=== PATIENT | male | born 1960 | race Caucasian/White ===

== ENCOUNTER → 2020-10-17 15:39 | Outpatient (BNVA) | payer MEDICARE, MEDICAID, SELFPAY | PROVIDERS: PCP Internal Medicine Geriatric Medicine; Referring Provider Internal Medicine Geriatric Medicine; Visit Provider Nurse Practitioner | DX: Z76.89 Persons encountering health services in other specified circumstances (principal) ==

== ENCOUNTER 2020-11-03 09:43 | Outpatient (REF) | payer MEDICARE, MEDICAID, SELFPAY ==
--- NOTE | 2020-11-03 | XR_ITS ---
EXAMINATION: XR HIP, RIGHT XR HIP, LEFT CLINICAL INFORMATION: Right and left hip pain COMPARISON: None TECHNIQUE: Right hip, 2 views Left hip, 2 views FINDINGS: Right hip: The femoral head is well-positioned within the intact acetabulum. The hip joint space is normal. No arthritic deformity. No fracture or osteonecrosis. No suspicious lytic or osteoblastic lesion. Soft tissues are unremarkable. Left hip: The femoral head is well-positioned within the intact acetabulum. The hip joint space is normal. No arthritic deformity. No fracture or osteonecrosis. No suspicious lytic or osteoblastic lesion. Soft tissues are unremarkable. XR/XR hip LT min 2V IMPRESSION: Normal radiographic examination of each hip.
--- NOTE | 2020-11-03 09:52 | XR_ITS ---
EXAMINATION: XR HIP, RIGHT XR HIP, LEFT CLINICAL INFORMATION: Right and left hip pain COMPARISON: None TECHNIQUE: Right hip, 2 views Left hip, 2 views FINDINGS: Right hip: The femoral head is well-positioned within the intact acetabulum. The hip joint space is normal. No arthritic deformity. No fracture or osteonecrosis. No suspicious lytic or osteoblastic lesion. Soft tissues are unremarkable. Left hip: The femoral head is well-positioned within the intact acetabulum. The hip joint space is normal. No arthritic deformity. No fracture or osteonecrosis. No suspicious lytic or osteoblastic lesion. Soft tissues are unremarkable. XR/XR hip RT min 2V IMPRESSION: Normal radiographic examination of each hip.
== END 2020-11-03 09:44 | disposition home or self-care (01) ==
LOC: HO.XRAY 09:43
PROVIDERS: PCP Internal Medicine Geriatric Medicine; Visit Provider Emergency Medicine
DX: M25.551 Pain in right hip (principal); M25.552 Pain in left hip
CPT/HCPCS: 73502

== ENCOUNTER → 2021-01-16 09:49 | Outpatient (BNVA) | payer MEDICARE, MEDICAID, SELFPAY | PROVIDERS: PCP Internal Medicine Geriatric Medicine; Visit Provider Nurse Practitioner | CPT/HCPCS: Q3014 ==

== ENCOUNTER → 2021-07-17 10:23 | Outpatient (BNVA) | payer MEDICARE, MEDICAID, SELFPAY | PROVIDERS: PCP Internal Medicine Geriatric Medicine; Referring Provider Internal Medicine Geriatric Medicine; Visit Provider Nurse Practitioner | DX: K21.9 Gastro-esophageal reflux disease without esophagitis (principal); K59.00 Constipation, unspecified; Z80.0 Family history of malignant neoplasm of digestive organs; Z79.899 Other long term (current) drug therapy | CPT/HCPCS: 99212 ==

== ENCOUNTER → 2021-07-20 15:49 | Outpatient (REF) | payer MEDICARE, MEDICAID, SELFPAY | LOC: HO.SL 15:49 | PROVIDERS: PCP Internal Medicine Geriatric Medicine; Visit Provider Internal Medicine Geriatric Medicine | DX: G47.33 Obstructive sleep apnea (adult) (pediatric) (principal) | CPT/HCPCS: 95806 ==

== ENCOUNTER 2022-03-05 10:34 | Outpatient (REF) | payer MEDICARE, MEDICAID, SELFPAY ==
--- NOTE | ~2022-03-05 | XR_ITS ---
EXAMINATION: XR SHOULDER, LEFT CLINICAL INFORMATION: Left shoulder pain. COMPARISON: Prior radiographs March 2015. TECHNIQUE: AP external rotation, Grashey, scapular Y, and axillary views of the left shoulder. FINDINGS: There is mild osteoarthritis of the acromioclavicular joint. The glenohumeral joint is normal. The surrounding bone and soft tissues are unremarkable. XR/XR shoulder LT min 2V IMPRESSION: Mild osteoarthritis of the acromioclavicular joint.
[2022-03-05 13:05] LABS: ~HepC Num1 0.12 S/CO (0.00-0.79); ~Hepatitis C Antibody Nonreactive (Nonreactive)
[2022-03-05 13:16] LABS: HBsAGNum1 0.17 S/CO (0.00-0.99); HIV AB/AG Nonreactive (Nonreactive); HIV Num 1 0.06 S/CO (0.00-0.99); Hepatitis B Surface Antigen Negative (Negative)
[2022-03-05 13:24] LABS: HBS Num1 320.71 mIU/mL (0-7.99); HBc Num1 11.23 S/CO (0.00-0.79); ~Hepatitis B Surface Antibody REACTIVE (Nonreactive)
[2022-03-05 14:18] LABS: HBc Num2 11.23 S/CO; HBc Num3 11.19 S/CO; Hepatitis B Core Antibody Reactive (Nonreactive)
[2022-03-07 15:01] LABS: TS Negative Control Passed; TS Panel A 0; TS Panel B 0; TS Positive Control Passed; TSpotTB Negative (Negative)
== END 2022-03-05 10:35 | disposition home or self-care (01) ==
LOC: HO.XRAY 10:34
PROVIDERS: PCP Internal Medicine Geriatric Medicine; Visit Provider Internal Medicine Geriatric Medicine
DX: Z00.00 Encounter for general adult medical examination without abnormal findings (principal); Z11.4 Encounter for screening for human immunodeficiency virus [HIV]; Z11.1 Encounter for screening for respiratory tuberculosis; M25.512 Pain in left shoulder
CPT/HCPCS: 36415; 73030; 86481; 86704; 86706; 86803; 87340; 87389

== ENCOUNTER → 2022-10-24 15:03 | Outpatient (BNVA) | payer MEDICARE, MEDICAID, SELFPAY | PROVIDERS: PCP Internal Medicine Geriatric Medicine; Visit Provider Nurse Practitioner | DX: Z01.818 Encounter for other preprocedural examination (principal); K59.00 Constipation, unspecified; K21.9 Gastro-esophageal reflux disease without esophagitis; Z80.0 Family history of malignant neoplasm of digestive organs | CPT/HCPCS: 99212 ==

== ENCOUNTER 2022-11-19 21:44 | Emergency (ER) | payer MEDICARE, MEDICAID, SELFPAY ==
[2022-11-19 21:49] VITALS: PULSE 66; RESP 18; TEMP 36.8; O2SAT 95
--- NOTE | 2022-11-19 22:33 | ED.LOWEXIN ---
HPI - Extremity Injury (Lower) General Chief Complaint: Extremity Injury, Lower Stated Complaint: L knee swelling Time Seen by Provider: 11/19/22 22:29 Source: patient Mode of arrival: ambulatory Limitations: no limitations History of Present Illness HPI Narrative: Patient complaining of pain in left knee for last 2 weeks getting worse swelling no known injuries patient was moving some heavy stuff few days no other joint pain no fever or chills Related Data Home Medications Medication Instructions Recorded Confirmed cholecalciferol (vitamin D3) 25 25 mcg PO DAILY 07/17/21 mcg (1,000 unit) tablet (Vitamin D3) amlodipine 2.5 mg tablet 2.5 mg PO DAILY 10/24/22 atorvastatin 10 mg tablet 10 mg PO DAILY 10/24/22 hydrocortisone 1 % topical cream topical 10/24/22 with perineal applicator tadalafil 20 mg tablet (Cialis) 20 mg PO DAILY 10/24/22 Previous Rx's Medication Instructions Recorded pantoprazole 40 mg tablet,delayed 40 mg PO DAILY #90 tabs 10/24/22 release peg 3350-electrolytes 236 240 ml PO Q10M 1 day #4,000 mL 10/24/22 gram-22.74 gram-6.74 gram-5.86 gram solution (Golytely) polyethylene glycol 3350 17 17 g PO DAILY 30 days #510 grams 10/24/22 gram/dose oral powder (Miralax) ibuprofen 600 mg tablet 600 mg PO Q6H PRN fever or pain 11/19/22 #30 tabs Allergies Allergy/AdvReac Type Severity Reaction Status Date / Time Influenza Virus Vaccines Allergy Unknown RASH Verified 07/17/21 10:31 Review of Systems Review of Systems: Yes all other systems are reviewed and are negative [facility] Past Medical History Surgical History History of esophagogastroduodenoscopy (EGD) History of testicular surgery Hx of colonoscopy Family History Family History Father Colon cancer Mother Alzheimer disease Brother Colon cancer, Onset Age: 60 Social History Social History Alcohol intake: never Smoked in Last 30 Days: No Use of substances other than those prescribed or required for medical reasons: No Advance Directives: No Advance Directives Information Provided: No Physical Exam Vital Signs: Vital Signs: Last Vital Signs Temp 98.2 F 11/19/22 21:49 Pulse 66 11/19/22 21:49 Resp 18 11/19/22 21:49 Pulse Ox 95 11/19/22 21:49 O2 Del Method 11/19/22 21:49 BMI result Body Mass Index 30.0 Appearance: Alert. Oriented X3. No acute distress. Neck: Normal inspection. Neck supple. CVS: Normal heart rate and rhythm. Pulses normal. Respiratory: No respiratory distress. Equal air entry bilateral, Abdomen: Soft and nontender. Bowel sounds are present, no mass palpable, no CVA tenderness Skin: Skin warm and dry. Normal skin color. Normal skin turgor. Extremities: No lower extremity edema. No calf tenderness left knee with moderate effusion Extrem: Knee images: 1. Moderate effusion good range of movement Medications Administered Discontinued Medications Generic Name Dose Route Start Last Admin Trade Name Freq PRN Reason Stop Dose Admin Lidocaine HCl 10 ml 11/19/22 22:40 11/19/22 22:51 Lidocaine Hcl 2 % Mpf 5 Ml Vial INFILTRATI 11/19/22 22:41 10 ml ONCE ONE Administration Methylprednisolone Acetate 80 mg 11/19/22 22:40 11/19/22 22:57 Methylprednisolone Acetate 80 Mg Vial INTRAARTIC 11/19/22 22:41 80 mg ONCE ONE Administration Medical Decision Making Medical Decision Making [facility] Narrative: Patient with left knee arthritis 50 cc joint fluid was aspirated ultrasound-guided methyl prednisolone with lidocaine were injected patient feeling much better now without any significant pain able to ambulate x-ray negative for acute will discharge patient Lab Data [facility] Lab Attestation statement: I reviewed the patient's lab results. Labs: Lab Results 11/19/22 Range/Units 23:30 Synovial Source l knee Synovial WBC 0.970 X10*3/uL Synovial RBC < 0.002 X10*6/uL Procedures Joint Aspiration/Injection Joint Asp./Inject. 1: Time Out Performed: Yes Side of body: left Joint Aspirated: knee Ultrasound Guidance: Yes Skin Prep: Povidone-Iodine1% Local Anesthetic: lidocaine 2% Amount of anesthesia used (mL): 5 Needle Size Used: 20G Fluid Obtained: clear Total fluid obtained (mL): 50 Medication Injected, if any: Methylprednisolone Amount of medication injected (mL): 5 Patient Tolerated Procedure: well Complications: none Additional Comments: 80 mg of methylprednisolone was injected with 4 mL of lidocaine 2% Discharge Plan Discharge Clinical Impression: Arthritis of left knee Patient Disposition: Home, Self-Care Instructions: Osteoarthritis (ED), Joint Aspiration (DC) Additional Instructions: Rest to your left knee Avoid going upstairs or downstairs Tyrone wrap for support Ibuprofen for pain Follow with PCP if not better Prescriptions: New ibuprofen 600 mg tablet 600 mg PO Q6H PRN (Reason: fever or pain) Qty: 30 0RF No Action cholecalciferol (vitamin D3) [Vitamin D3] 25 mcg (1,000 unit) tablet 25 mcg PO DAILY tadalafil [Cialis] 20 mg tablet 20 mg PO DAILY amlodipine 2.5 mg tablet 2.5 mg PO DAILY atorvastatin 10 mg tablet 10 mg PO DAILY hydrocortisone 1 % cream with perineal applicator topical peg 3350-electrolytes [Golytely] 236-22.74-6.74 -5.86 gram recon soln 240 ml PO Q10M 1 Days Qty: 4000 0RF Rx Instructions: until fecal effluent is clear; do not exceed a total volume of 2,000 mL polyethylene glycol 3350 [Miralax] 17 gram/dose powder 17 g PO DAILY 30 Days Qty: 510 6RF pantoprazole 40 mg tablet,delayed release (DR/EC) 40 mg PO DAILY Qty: 90 1RF Stand Alone Forms: Work/School Release Interventions: ED Discharge Assessment Last Done: 11/19/22 23:38 Discharge Date/Time: 11/19/22 23:38
--- NOTE | 2022-11-19 23:08 | PC.NURSE ---
PT a&ox4, reports left knee pain pain and swelling for 2 weeks now. Reports 5/10 pain. PT ambulatory, describes pain as a pulling pain. Provider at bedside.
[2022-11-19 23:45] LABS: MN% 90.6 %; PMN% 9.4 %
[2022-11-19 23:49] LABS: BF Shift QC OK YES; RBC Synovial Fluid < 0.002 X10*6/uL
[2022-11-20 00:12] LABS: Lymphocytes Synovial Fluid 11 %; Monocytes Synovial Fluid 76 %; Neutrophils Synovial Fluid 7 %; Other Cells Synovial Fluid 6
== END 2022-11-19 23:38 | disposition home or self-care (01) ==
PROVIDERS: Emergency Provider Internal Medicine; PCP Internal Medicine Geriatric Medicine
DX: M17.12 Unilateral primary osteoarthritis, left knee (principal); M25.462 Effusion, left knee; M25.562 Pain in left knee
CPT/HCPCS: 20611; 73560; 87070; 87073; 87205; 89051; 89060; 99284; J1040

== ENCOUNTER 2022-12-04 16:09 | Emergency (ER) | payer MEDICARE, MEDICAID, SELFPAY ==
--- NOTE | ~2022-12-04 | XR_ITS ---
EXAMINATION: XR KNEE, LEFT CLINICAL INFORMATION: Knee pain COMPARISON: Left knee 11/19/2022 TECHNIQUE: Four views of the left knee. FINDINGS: Compared to the prior study, the left knee joint effusion is decreased in size with only a tiny effusion remaining. The exam is otherwise unchanged with some mild degenerative changes and some very mild tricompartmental narrowing no acute finding. XR/XR knee LT 4V IMPRESSION: Decrease in size of left knee joint effusion. No acute finding.
[2022-12-04 16:17] VITALS: BP 133/86; PULSE 70; RESP 18; TEMP 36.6; O2SAT 98
--- NOTE | 2022-12-04 16:18 | ED_ITS ---
HPI - Extremity Injury (Lower) General Chief Complaint: Extremity Injury, Lower <ALISSA Valdivia - Last Filed: 12/04/22 16:23> Stated Complaint: L knee pain <ALISSA Valdivia - Last Filed: 12/04/22 16:23> Time Seen by Provider: 12/04/22 16:40 <ALISSA Valdivia - Last Filed: 12/04/22 16:23> History of Present Illness HPI Narrative: Patient is a 62-year-old male presents to the emergency department for evaluation of left knee pain. States he was seen in the emergency department a couple of weeks ago had a cortisone injection and drainage of the knee which improved his pain. Symptoms returned about 1 week ago, increasing pain to the left medial knee which is made worse with weight-bearing/ambulation. Denies any numbness or tingling to the extremity. Denies any injury or fall. Denies fevers or chills. Denies redness, lesions, rash. <Simi Jones CNP - Last Filed: 12/04/22 17:38> Related Data Home Medications: Home Medications Medication Instructions Recorded Confirmed cholecalciferol (vitamin D3) 25 25 mcg PO DAILY 07/17/21 mcg (1,000 unit) tablet (Vitamin D3) amlodipine 2.5 mg tablet 2.5 mg PO DAILY 10/24/22 atorvastatin 10 mg tablet 10 mg PO DAILY 10/24/22 hydrocortisone 1 % topical cream topical 10/24/22 with perineal applicator tadalafil 20 mg tablet (Cialis) 20 mg PO DAILY 10/24/22 Previous Rx's Medication Instructions Recorded pantoprazole 40 mg tablet,delayed 40 mg PO DAILY #90 tabs 10/24/22 release peg 3350-electrolytes 236 240 ml PO Q10M 1 day #4,000 mL 10/24/22 gram-22.74 gram-6.74 gram-5.86 gram solution (Golytely) polyethylene glycol 3350 17 17 g PO DAILY 30 days #510 grams 10/24/22 gram/dose oral powder (Miralax) ibuprofen 600 mg tablet 600 mg PO Q6H PRN fever or pain 11/19/22 #30 tabs <ALISSA Valdivia - Last Filed: 12/04/22 16:23> Allergies/Adverse Reactions: Allergies Allergy/AdvReac Type Severity Reaction Status Date / Time Influenza Virus Vaccines Allergy Unknown RASH Verified 07/17/21 10:31 <ALISSA Valdivia - Last Filed: 12/04/22 16:23> Review of Systems Review of Systems: Musculoskeletal: Positive knee pain is noted in HPI <Simi Jones CNP - Last Filed: 12/04/22 17:38> Yes all other systems are reviewed and are negative <Simi Jones CNP - Last Filed: 12/04/22 17:38> [facility] Past Medical History Attestation statement: The following information was validated with the patient. <Simi Jones CNP - Last Filed: 12/04/22 17:38> Source: old records reviewed <Simi Jones CNP - Last Filed: 12/04/22 17:38> Surgical History: Surgical History History of esophagogastroduodenoscopy (EGD) History of testicular surgery Hx of colonoscopy <ALISSA Valdivia - Last Filed: 12/04/22 16:23> Family History Family History: Family History Father Colon cancer Mother Alzheimer disease Brother Colon cancer, Onset Age: 60 <ALISSA Valdivia - Last Filed: 12/04/22 16:23> Social History Social History: Social History Alcohol intake: never Advance Directives: No Advance Directives Information Provided: Yes <ALISSA Valdivia - Last Filed: 12/04/22 16:23> Physical Exam Vital Signs: Vital Signs: Last Vital Signs Temp 97.8 F 12/04/22 16:17 Pulse 70 12/04/22 16:17 Resp 18 12/04/22 16:17 BP 133/86 12/04/22 16:17 Pulse Ox 98 12/04/22 16:17 O2 Del Method 12/04/22 16:17 BMI result Body Mass Index 30.0 <ALISSA Valdivia - Last Filed: 12/04/22 16:23> Vital Signs: Last Vital Signs Temp 97.8 F 12/04/22 16:17 Pulse 70 12/04/22 16:17 Resp 18 12/04/22 16:17 BP 133/86 12/04/22 16:17 Pulse Ox 98 12/04/22 16:17 O2 Del Method 12/04/22 16:17 BMI result Body Mass Index 30.0 <Simi Jones CNP - Last Filed: 12/04/22 17:38> Appearance: Alert.?Oriented to person, place and time. No acute distress.?Normal affect. Eyes: Pupils equal, round and reactive to light.? ENT: Pharynx normal.?? Neck: Normal inspection.? Neck supple.?? CVS: Heart sounds normal. Normal heart rate and rhythm.? Pulses normal.?? Respiratory: No respiratory distress.? Lung sounds clear to auscultation bilaterally?? Abdomen: Soft and non-tender. Skin: Skin warm and dry.? Normal skin color.? Extremities: No lower extremity edema.? Left knee with full AROM, no obvious effusion, no laxity, no lesions, no redness, no warmth. 2+ DP/PT pulse bilaterally. Neuro: Moves all extremities spontaneously. Sensation intact bilaterally. Ambulates with normal steady gait. <Simi Jones CNP - Last Filed: 12/04/22 17:38> Course Course Course Narrative: RME - 62 yo male recently here for left knee effusion s/p arthrocentesis by Dr. Mcmillan on 11/19 who presents back to the ER with worsening left knee pain and medial swelling for 2 weeks. No fevers, or redness. It is warm per his report and throbbing pain. Limping into triage. XR ordered to reassess for recurrent effusion. <ALISSA Valdivia - Last Filed: 12/04/22 16:23> Medical Decision Making Medical Decision Making MDM Narrative: Patient is a 62-year-old male presents to the emergency department for evaluation of atraumatic left knee pain. Was evaluated in the emergency department 11/19, underwent arthrocentesis secondary to effusion, advised use of NSAIDs for pain/symptoms. XR imaging today without evidence of fracture dislocation, improvement in size of a fusion. Upon physical examination no significant effusion is appreciated, no obvious deformity or laxity. Pain most consistent with arthritis at this time. Not consistent with septic arthritis. Discussed use of high-dose NSAID, outpatient follow-up with primary care provider/orthopedic for further evaluation/treatment. Reviewed worrisome signs and symptoms of warrant re-evaluation in the emergency department. Patient ambulatory with steady gait, stable for discharge. <Simi Jones CNP - Last Filed: 12/04/22 17:38> Differential Diagnosis Differential Diagnoses: The differential diagnosis associated with the presentation includes (As noted above) <Simi Jones CNP - Last Filed: 12/04/22 17:38> Independent Interpretation I performed an independent interpretation of an: Plain X-Ray (I personally interpreted x-ray imaging of the left knee and agree with radiologist impression, no evidence of acute fracture dislocation.) <Simi Jones CNP - Last Filed: 12/04/22 17:38> Radiology Impression Discussion of test interpretation with radiology: I have reviewed the radiologist's reading. <Simi Jones CNP - Last Filed: 12/04/22 17:38> Radiologist Impression: XR/XR knee LT 4V IMPRESSION: Decrease in size of left knee joint effusion. No acute finding. ? <Simi Jones CNP - Last Filed: 12/04/22 17:38> Prescription Management I considered prescription management with: Pain Medication <Simi Jones CNP - Last Filed: 12/04/22 17:38> Discharge Plan Discharge Clinical Impression: Arthritis of knee, left <ALISSA Valdivia - Last Filed: 12/04/22 16:23> Patient Disposition: Home, Self-Care <ALISSA Valdivia - Last Filed: 12/04/22 16:23> Instructions: Osteoarthritis (ED) <ALISSA Valdivia - Last Filed: 12/04/22 16:23> Additional Instructions: As discussed, the x-ray does not show any fracture dislocation. There is no significant effusion or fluid buildup that would require drainage has occurred in the past. Please be sure to rest, avoid excessive ambulation, stair climbing. Use Tyrone bandage to the left knee. Continue use of ibuprofen for pain. Contact your primary care provider to arrange for further follow-up. <ALISSA Valdivia - Last Filed: 12/04/22 16:23> Prescriptions: No Action ibuprofen 600 mg tablet 600 mg PO Q6H PRN (Reason: fever or pain) Qty: 30 0RF cholecalciferol (vitamin D3) [Vitamin D3] 25 mcg (1,000 unit) tablet 25 mcg PO DAILY tadalafil [Cialis] 20 mg tablet 20 mg PO DAILY amlodipine 2.5 mg tablet 2.5 mg PO DAILY atorvastatin 10 mg tablet 10 mg PO DAILY hydrocortisone 1 % cream with perineal applicator topical peg 3350-electrolytes [Golytely] 236-22.74-6.74 -5.86 gram recon soln 240 ml PO Q10M 1 Days Qty: 4000 0RF Rx Instructions: until fecal effluent is clear; do not exceed a total volume of 2,000 mL polyethylene glycol 3350 [Miralax] 17 gram/dose powder 17 g PO DAILY 30 Days Qty: 510 6RF pantoprazole 40 mg tablet,delayed release (DR/EC) 40 mg PO DAILY Qty: 90 1RF <ALISSA Valdivia - Last Filed: 12/04/22 16:23> Referrals: Name,MD Elvin [Primary Care Provider] - <ALISSA Valdivia - Last Filed: 12/04/22 16:23>
== END 2022-12-04 17:40 | disposition home or self-care (01) ==
PROVIDERS: Emergency Provider Emergency Medicine Emergency Medical Services; PCP Internal Medicine Geriatric Medicine
DX: M17.12 Unilateral primary osteoarthritis, left knee (principal); M25.562 Pain in left knee; Z79.02 Long term (current) use of antithrombotics/antiplatelets; Z79.899 Other long term (current) drug therapy
CPT/HCPCS: 73564; 99282; 99283

== ENCOUNTER 2023-02-04 12:02 | Outpatient (REF) | payer MEDICARE, MEDICAID, SELFPAY ==
--- NOTE | ~2023-02-04 | XR_ITS ---
EXAMINATION: XR KNEE AP STANDING CLINICAL INFORMATION: Pain in right knee. COMPARISON: Left knee 11/19/2022 TECHNIQUE: AP bilateral standing view of the knees was obtained. Left knee sunrise view. FINDINGS: AP bilateral knee standing: There is mild reduction in medial compartment joint space both knees without bony erosive changes. There is no visible acute fracture, dislocation or lytic process seen. The lateral compartment joint space is normal. The soft tissues are normal. Left knee: The patellofemoral joint space is maintained normal. No bony erosive changes. No loose bodies. No soft tissue swelling. XR/XR knee LT 1V IMPRESSION: 1. Mild early degenerative changes medial compartment both knees. No visible acute fracture, dislocation or subluxation seen. 2. Unremarkable left knee exam.
--- NOTE | ~2023-02-04 | XR_ITS ---
EXAMINATION: XR KNEE AP STANDING CLINICAL INFORMATION: Pain in right knee. COMPARISON: Left knee 11/19/2022 TECHNIQUE: AP bilateral standing view of the knees was obtained. Left knee sunrise view. FINDINGS: AP bilateral knee standing: There is mild reduction in medial compartment joint space both knees without bony erosive changes. There is no visible acute fracture, dislocation or lytic process seen. The lateral compartment joint space is normal. The soft tissues are normal. Left knee: The patellofemoral joint space is maintained normal. No bony erosive changes. No loose bodies. No soft tissue swelling. XR/XR knee standing BI IMPRESSION: 1. Mild early degenerative changes medial compartment both knees. No visible acute fracture, dislocation or subluxation seen. 2. Unremarkable left knee exam.
== END 2023-02-04 12:03 | disposition home or self-care (01) ==
LOC: HO.HOSX 12:02
PROVIDERS: Visit Provider Physician Assistant
DX: M17.12 Unilateral primary osteoarthritis, left knee (principal)
CPT/HCPCS: 20610; 73560; 73565; 99202; J1040

== ENCOUNTER 2023-03-22 14:00 | Outpatient (RCR) | payer MEDICARE, MEDICAID, SELFPAY ==
[2023-03-04 11:05] VITALS: BP 156/73; PULSE 61
--- NOTE | 2023-03-04 11:54 | MHC.PT.EP ---
[facility] [place] Office [place] Office [place] Office [address] [phone] F: [phone] F: [phone] F: [phone] F: [phone] Physical Therapy Plan of Care Date of Evaluation: Date of Surgery: NA Diagnosis: Unilateral primary OA, L knee Assessment: Abrahan is a 62 year old male who is referred to PT for unilateral primary OA, L knee . He reports of having pain in L knee for 3-4 months. He denies having any trauma however reports of having a day where he was weight bearing significantly on L LE while loading his truck. He reported of having swelling a few days after this. He went to the ED where it was drained and cortisone shot given. On PT examination he presented with 7/10 pain in knee with standing, walking, stairs, mild to moderate swelling, decreased knee ROM, decreased L LE strength, altered posture and gait. He lives with his family and is independent with all ADLS but modifies by taking frequent rest breaks. He works as a [employer]. He would benefit from skilled PT to address the aforementioned impairments and improve tolerance to functional activities. Frequency and Duration: The patient will be seen 2/week for 5 weeks Short Term Goals: 1. Pt will have 50% decrease in pain which will enable him to tolerate sitting without pain in 2 weeks. 2. Pt will be able move knee through full plane of motion without pain which will enable him to negotiate stairs with a pain no more than 2/10 in 3 weeks. Making Department Preparer Goals: 1. Pt will demonstrate an increase in muscle strength by 1 grade which will enable him to tolerate sit to stand and walk without pain in 5 weeks. 2. Pt will be independent with HEP for symptom management and maintenance following d/c in 5 weeks. Treatment Plan: Modalities to reduce pain, spasms and effusion. Manual therapy to restore motion and function. Therapeutic exercise to improve strength and flexibility. Neuromuscular re-education for posture and balance. Therapeutic activities to return to functional activities of daily living. Electronically signed by: Dory Hutson PT DPT Please sign and return to therapist. Thank you for your referral.
--- NOTE | 2023-04-25 08:28 | MHC.PT.DC ---
[facility] [place] Office [place] Office [place] Office [address] [phone] F: [phone] F: [phone] F: [phone] F: [phone] Physical Therapy Discharge Report Diagnosis: Unilateral primary OA, L knee Date of Surgery: NA Date of Evaluation: 03/04/23 Date of Discharge: 04/25/23 Treatments to Date: 4 Cancellations to Date: 1 No Shows to Date: 2 Discharge Status: Visit Non-compliance Discharge Summary: Abrahan attended only 4 PT. He has had 2 no shows and 1 cancels. He has made no appointments in over a month. He is therefore being d/c from PT. Electronically signed by: Dory Hutson PT DPT Please sign and return to therapist. Thank you for your referral.
== END 2023-04-25 08:28 | disposition home or self-care (01) ==
LOC: HO.PT 14:00
PROVIDERS: PCP Internal Medicine Geriatric Medicine; Visit Provider Physician Assistant
DX: M17.12 Unilateral primary osteoarthritis, left knee (principal)
CPT/HCPCS: 97110; 97112; 97140; 97161

== ENCOUNTER 2024-01-09 11:14 | Outpatient (REF) | payer MEDICARE, MEDICAID, SELFPAY ==
[2024-01-11 20:48] LABS: TS Negative Control Passed; TS Panel A 0; TS Panel B 0; TS Positive Control Passed; TSpotTB Negative (Negative)
== END 2024-01-09 11:15 | disposition home or self-care (01) ==
LOC: HO.HHCL 11:14
PROVIDERS: Visit Provider Internal Medicine Geriatric Medicine
DX: Z00.00 Encounter for general adult medical examination without abnormal findings (principal)
CPT/HCPCS: 36415; 86481

== ENCOUNTER 2024-04-30 08:33 | Day surgery (SDC) | payer MEDICARE, MEDICAID, SELFPAY ==
--- NOTE | 2024-04-29 10:41 | HO.ANESPROP2 ---
Documented by User: Anjelica Alves NP 04/29/24 10:42 HPI - Anesthesia Eval Consult details Narrative: 64yo M for Colonoscopy PMFSH Active Problems Active Problems: All Active Problems Osteoarthritis of left knee (Acute) Pre-op examination (Acute) Family history of colon cancer (Acute) Constipation (Acute) Bile acid esophageal reflux (Acute) GERD (gastroesophageal reflux disease) (Acute) Past Medical History Medical History HTN (hypertension) Sleep apnea Hx of gastroesophageal reflux (GERD) History of high cholesterol Family History Family History Father Colon cancer Mother Alzheimer disease Brother Colon cancer, Onset Age: 60 Surgical History Surgical History Hx of excision of mass History of testicular surgery Hx of colonoscopy History of esophagogastroduodenoscopy (EGD) Social History Social History Alcohol intake: never Patient Tobacco Use Status: Never used Tobacco Advance Directives: No Advance Directives Information Provided: Yes Meds Allergies Allergy/AdvReac Type Severity Reaction Status Date / Time latex Allergy Mild Rash Verified 04/30/24 08:48 Influenza Virus Vaccines Allergy Unknown RASH Verified 02/04/23 12:29 Home Medications ?Medication ?Instructions ?Recorded ?Confirmed ?Last Taken ?Type cholecalciferol (vitamin D3) 25 25 mcg PO DAILY 07/17/21 04/30/24 Unknown History mcg (1,000 unit) tablet (Vitamin D3) amlodipine 2.5 mg tablet 2.5 mg PO DAILY 10/24/22 04/30/24 Unknown History atorvastatin 10 mg tablet 10 mg PO DAILY 10/24/22 04/30/24 Unknown History tadalafil 20 mg tablet (Cialis) 20 mg PO DAILY 10/24/22 04/30/24 Unknown History Exam Height,Weight and Vital Signs: Height 5 ft 4 in Weight 79.379 kg Assessment and Plan Assessment Anesthesia Assessment: Chart Reviewed Documented by User: Meghan Monterroso MD 04/30/24 09:30 PMFSH Active Problems Active Problems: All Active Problems Osteoarthritis of left knee (Acute) Pre-op examination (Acute) Family history of colon cancer (Acute) Constipation (Acute) Bile acid esophageal reflux (Acute) GERD (gastroesophageal reflux disease) (Acute) MICHEAL. Uses CPAP Past Medical History Medical History HTN (hypertension) Sleep apnea Hx of gastroesophageal reflux (GERD) History of high cholesterol Family History Family History Father Colon cancer Mother Alzheimer disease Brother Colon cancer, Onset Age: 60 Family history of problems with anesthesia: No Surgical History Surgical History Hx of excision of mass History of testicular surgery Hx of colonoscopy History of esophagogastroduodenoscopy (EGD) History of Problems with Anesthesia: No Social History Social History Alcohol intake: never Patient Tobacco Use Status: Never used Tobacco Advance Directives: No Advance Directives Information Provided: Yes Meds Allergies Allergy/AdvReac Type Severity Reaction Status Date / Time latex Allergy Mild Rash Verified 04/30/24 08:48 Influenza Virus Vaccines Allergy Unknown RASH Verified 02/04/23 12:29 Home Medications ?Medication ?Instructions ?Recorded ?Confirmed ?Last Taken ?Type cholecalciferol (vitamin D3) 25 25 mcg PO DAILY 07/17/21 04/30/24 Unknown History mcg (1,000 unit) tablet (Vitamin D3) amlodipine 2.5 mg tablet 2.5 mg PO DAILY 10/24/22 04/30/24 Unknown History atorvastatin 10 mg tablet 10 mg PO DAILY 10/24/22 04/30/24 Unknown History tadalafil 20 mg tablet (Cialis) 20 mg PO DAILY 10/24/22 04/30/24 Unknown History Exam Height,Weight and Vital Signs: Height 5 ft 4 in Weight 79.379 kg Vital Signs Temp Pulse Resp BP Pulse Ox O2 Del Method 04/30/24 08:38 98 F 56 20 132/66 96 Room Air Airway Mallampati Class: II TM Dist: >3cm Neck ROM: Full Partial: Upper and Lower Loose/Missing/Broken Teeth: Yes (Partials top and bottom. Denies broken) Heart: RRR Lungs: CTAB Assessment and Plan Assessment Anesthesia Assessment: Anesthesia Plan Discussed and Chart Reviewed Final Anesthetic Review Family History of Problems with Anesthesia: No History of Problems with Anesthesia: No NPO: Yes ASA Class: III Final Preanesthetic Review: No Changes in Pt Med Stat, Meds/Allgs Chart Reviewed, Consent Obtained/Reviewed and Anes Risks/Benef Reviewed Patient Risk: Intermediate Procedure Risk: Low Assessment/Block/Sedation in SS: Assess/Block/Sedation-SS Anesthetic Plan Anesthetic Plan: GA and TIVA Disposition: Standard PACU
[2024-04-30 08:38] VITALS: BP 132/66; PULSE 56; RESP 20; TEMP 36.6; O2SAT 96; BMI 30.3
[2024-04-30] MEDS: Lactated Ringers 1,000 ML 100 ML IVCONT (08:57)
--- NOTE | 2024-04-30 09:22 | MHC.SHP ---
Pre-Procedural Eval Section A - 24 Hr Update-Section A only Date of Service: 04/30/24 Section B - Complete if H&P > 30 days Chief Complaint: Encounter for screening for malignant neoplasm of Details of Present Illness: father and brother with CRC Relevant Family History (Specify if Yes): Yes Relevant Social History: None Present Medications: see Short Stay Collaborative assessment Medical History: Significant History (HTN (hypertension) Sleep apnea Hx of gastroesophageal reflux (GERD) History of high cholesterol) History of Previous Operations: Relevant previous surgery/procedure and date(s) (Hx of excision of mass History of testicular surgery Hx of colonoscopy History of esophagogastroduodenoscopy (EGD)) Allergies: Allergies Allergy/AdvReac Type Severity Reaction Status Date / Time latex Allergy Mild Rash Verified 04/30/24 08:48 Influenza Virus Vaccines Allergy Unknown RASH Verified 02/04/23 12:29 Review of Systems Sugical H&P ROS: Negative: Constitution, Cardiovascular, Respiratory, Neurological, Psychiatric, Hem-Onc, Allergic/Immunologic, Gastrointestinal, Genitourinary, Musculoskeletal, Integumentary, Endocrine and Eyes/Ears/Nose/Throat Exam Surgical H&P Exam: Normal: HEENT, Normal: Heart, Normal: Lungs, Normal: Extremities, Normal: Abdomen, Normal: Skin and Normal: Neurological Plan Diagnosis/Plan: Unchanged I have reviewed the history and physical and performed a pertinent physical examination on my patient. No changes have occurred unless specified. Time Spent With Patient Time: Total time managing care of this patient today ____ minutes.
--- NOTE | 2024-04-30 10:03 | HO.OPN-COLON ---
Colonoscopy Operative Note Operative Note Date of Service: 04/30/24 Narrative: Operative Information Procedure Description: Colonoscopy Indication: screening, high risk due to FH of CRC Anesthesia: MAC COLONOSCOPY Instrument: Olympus variable stiffness pediatric scope 190L Colonoscopy Monitoring: Vital signs and clinical assessment, continuous EKG monitoring, Pulse oximetry, Carbon Dioxide monitoring and blood pressure monitoring were done throughout the procedure. Colon withdrawal time was 7 minutes. Procedure: The patient was placed in the left lateral decubitis position and pre-procedure medications were administered. After a digital rectal examination of the ano-rectum, the video colonoscope was inserted into the rectum and advanced through the colon to the cecum/TI. The colonoscope was slowly withdrawn in a retrograde panoramic fashion and the colon mucosa was carefully examined including a retroflexed view of the rectum. Findings and interventions are described below. Procedure Difficulty: easy Findings: Terminal Ileum-normal Cecum:normal Right sided retroflexion: normal Ascending Colon: normal Transverse Colon -normal Descending Colon:normal Sigmoid Colon: normal Rectum: Retroflexion with medium internal hemorrhoids seen, grade I Anorectum - normal Intervention: none Colon preparation: [place] Bowel Preparation Scale Right colon; 3 Transverse colon: 3 Left colon; 3 (0 = Unprepared colon segment with mucosa not seen due to solid stool that cannot be cleared. 1 = Portion of mucosa of the colon segment seen, but other areas of the colon segment not well seen due to staining, residual stool and/or opaque liquid. 2 = Minor amount of residual staining, small fragments of stool and/or opaque liquid, but mucosa of colon segment seen well. 3 = Entire mucosa of colon segment seen well with no residual staining, small fragments of stool or opaque liquid) Impression and Post Procedure Diagnosis: internal hemorrhoids Plan: High fiber diet leaflet Avoid straining at stool, epsom salts and sitz bath, anusol supps or cream Repeat Colonoscopy in 5 years due to FH of CRC or earlier if clinically indicated Above findings were reviewed with the patient and relevant handouts were provided if indicated.
[2024-04-30 10:08] VITALS: BP 114/52; PULSE 61; RESP 16; TEMP 36.4; O2SAT 97
[2024-04-30 10:22] VITALS: BP 110/59; PULSE 63; RESP 18; TEMP 36.6; O2SAT 95
== END 2024-04-30 11:50 | disposition home or self-care (01) ==
PROVIDERS: PCP Internal Medicine Geriatric Medicine; Visit Provider Internal Medicine Gastroenterology
PROC: 0DJD8ZZ Inspection of Lower Intestinal Tract, Via Natural or Artificial Opening Endoscopic (ICD-10-PCS; CPT 45378; principal; 2024-04-30 10:30)
DX: Z12.11 Encounter for screening for malignant neoplasm of colon (principal); K64.0 First degree hemorrhoids; Z80.0 Family history of malignant neoplasm of digestive organs; I10 Essential (primary) hypertension; G47.30 Sleep apnea, unspecified
CPT/HCPCS: G0105; J2704

== ENCOUNTER → 2024-04-30 08:33 | Outpatient (BNV) | payer MEDICARE, MEDICAID, SELFPAY | PROVIDERS: PCP Internal Medicine Geriatric Medicine; Visit Provider Internal Medicine Gastroenterology | DX: Z12.11 Encounter for screening for malignant neoplasm of colon (principal); Z80.0 Family history of malignant neoplasm of digestive organs; K64.0 First degree hemorrhoids | CPT/HCPCS: G0105 ==

== ENCOUNTER 2024-05-14 09:27 | Outpatient (AMB) | payer MEDICARE, MEDICAID, SELFPAY ==
[2024-05-14 09:29] VITALS: BP 138/67; PULSE 60; BMI 29.2
--- NOTE | 2024-05-14 09:29 | A.OFFVIS_ITS ---
Vital Signs 05/14/24 09:29 Height 5 ft 4 in Weight 170 lb 3.15 oz BMI 29.2 BP 138/67 Blood Pressure Location Lt brachial Position Sitting Pulse 60 Intake Visit Reasons: s/p colon Intake Note: Abrahan presents to in office visit today s/p colonoscopy. CC: Patient c/o RLQ abdominal pain on and off, and GERD. He takes pantoprazole for GERD and states it helps with symptoms. Administrative Representative Required: No Accompanied by: Self / Same As Patient Allergies latex Allergy (Mild, Verified 05/14/24 09:39) Rash Influenza Virus Vaccines Allergy (Unknown, Verified 05/14/24 09:39) RASH HPI HPI s/p colon: Details: Assessment & Plan (1) Family history of colon cancer: Comment: Last scoped 2018 repeat in 5 years or 2022 Code(s): Z80.0 - Family history of malignant neoplasm of digestive organs Plan: SAUDI ARABIAN #declines He continues to do very well. He is utilizing the MiraLax and this controls his constipation well although he has not needed to use it lately because he has been increasing the fiber in his diet. He also continues to have good control of his heartburn on his pantoprazole once a day. He will be due for colonoscopy in 2022. We discussed this and he is agreeable to having it is scheduled/ordered now since were running so far out in colonoscopies. He has no prior problems with anesthesia or sedation. There are no cardiac or respiratory problems. There are no infectious disease problems. He has a family history of colon cancer and his last colonoscopy was in 2018. At this point I will see him after the colonoscopy. (2) Constipation: Code(s): K59.00 - Constipation, unspecified (3) GERD (gastroesophageal reflux disease): Code(s): K21.9 - Gastro-esophageal reflux disease without esophagitis (4) Bile acid esophageal reflux: Code(s): K21.9 - Gastro-esophageal reflux disease without esophagitis (5) Pre-op examination: Code(s): Z01.818 - Encounter for other preprocedural examination Orders: Orders Comprehensive Met. Panel 10/24/22 Z01.818 - Encounter for other preprocedural examination Complete Blood Count Auto Diff 10/24/22 Z01.818 - Encounter for other preprocedural examination Medications: New peg 3350-electrolytes 236-22.74-6.74 -5.86 gram (Golytely) until fecal effluent is clear; do not exceed a total volume of 2,000 mL 240 mL PO Q10M 1 day 4,000 mL 0RF Z12.11 - Encounter for screening for malignant neoplasm of colon Refilled polyethylene glycol 3350 (Miralax) 17 grams PO DAILY 30 days 510 grams 6RF K59.00 - Constipation, unspecified pantoprazole 40 mg PO DAILY 90 tabs 1RF K21.9 - Gastro-esophageal reflux disease without esophagitis LABS: Not obtained COLONOSCOPY 04/30/24 Findings: Terminal Ileum-normal Cecum:normal Right sided retroflexion: normal Ascending Colon: normal Transverse Colon -normal Descending Colon:normal Sigmoid Colon: normal Rectum: Retroflexion with medium internal hemorrhoids seen, grade I Anorectum - normal Intervention: none Impression and Post Procedure Diagnosis: internal hemorrhoids Plan: High fiber diet leaflet Avoid straining at stool, epsom salts and sitz bath, anusol supps or cream Repeat Colonoscopy in 5 years due to FH of CRC or earlier if clinically indicated TODAY'S VISIT SAUDI ARABIAN #declines He has agreeable to a 5 year follow-up. The procedure was well tolerated. The results were explained and the patient is agreeable to the follow-up interval as stated. The bowel pattern has returned to normal. Education was provided to tell any 1st degree relatives about their findings to be sure that they are screened by age 45. Educated that they will be put on a recall list when it is time for their repeat scope but should they move out of state or away from the hospital they will need to remember along with their primary to repeat the procedure in a timely fashion to avoid any adverse complications. He also continues to have good control of his heartburn on his pantoprazole once a day. He has not needed to use MiraLax since adjusting fiber in his diet and this is controlling his constipation well. Return office visit in 6 months [facility] Medical History HTN (hypertension) Sleep apnea Hx of gastroesophageal reflux (GERD) History of high cholesterol Surgical History Hx of excision of mass History of testicular surgery Hx of colonoscopy History of esophagogastroduodenoscopy (EGD) Family History Father Colon cancer Mother Alzheimer disease Brother Colon cancer, Onset Age: 60 Social History Alcohol intake: never Patient Tobacco Use Status: Never used Tobacco Review of Systems Const Denies fatigue, Denies fever(s), Denies night sweats, Denies poor appetite and Denies weight loss ENT Reports Normal hearing present, Denies dental pain, Denies dysphagia, Denies hearing loss, Denies mouth pain, Denies odynophagia, Denies throat swelling, Denies tongue swelling and Reports other (Dentition adequate) Card Reports no additional complaints Resp Reports no additional complaints GI Details: Denies abdominal pain, Denies melena, Denies bloating, Denies hematochezia, Reports constipation, Denies GI cramping, Denies dysphagia, Denies excessive flatus, Denies early satiety, Reports heartburn, Denies diarrhea, Denies nausea, Denies odynophagia, Denies vomiting and Denies hematemesis Skin/Breast Denies pruritus, Denies lesions, Denies rash and Denies jaundice Neuro Reports Normal hearing present and Denies Abnormal speech present Endo Denies fatigue Aller/Immun Denies throat swelling and Denies tongue swelling Physical Exam Vital Signs: Last Vital Signs Pulse 60 05/14/24 09:29 BP 138/67 05/14/24 09:29 BMI result Body Mass Index 29.2 Const General: cooperative, no acute distress, well developed and well groomed Nutritional Appearance: well nourished and overweight Orientation/consciousness: oriented to person, oriented to place and oriented to time Limitations: No language barrier HEENT Head: Yes normocephalic and Yes atraumatic Eyes General: appearance normal, both eyes and all related structures Pupils: Equal, round and reactive pupils present Neck Neck: Yes normal visual inspection and Yes no lymphadenopathy Thyroid: Thyroid normal Resp Effort & Inspection: normal respiratory effort and able to speak in complete sentences Auscultation: clear to auscultation bilaterally Cardio Rate: regular rate Rhythm: regular rhythm Heart sounds: Normal, physiologic split S2 sound present Peripheral pulses: radial pulses present and posterior tibial pulses present GI Inspection: No distended and No Abdominal panniculus present Palpation (GI): Soft to palpation, nontender, no guarding, not rigid and No hepatosplenomegaly present Percussion: Yes normal to percussion Auscultation: normal bowel sounds Rectal Exam - Male: Yes deferred Skin General skin exam: no rashes or lesions noted, turgor normal, skin not dry, no jaundice, No spider nevi and no striae Rashes: no rashes Nails: normal Neuro General: oriented to person, oriented to place and oriented to time Cranial nerves: Yes Equal, round and reactive pupils present and Yes Normal hearing present Speech: No Abnormal speech present Extrem General: Yes normal to inspection, No clubbing, No cyanosis and No edema Psych Appearance: grossly normal and well kempt Mental Status: mental status grossly normal Speech and movement: Normal speech and movement present Affect: normal affect Attitude: cooperative Thought process: Normal thought process present and not confabulating Thought content: Normal thought content present Insight: Fair insight present (Psych) Judgement: Fair judgement present (Psych) Assessment & Plan Assessment & Plan (1) GERD (gastroesophageal reflux disease): Code(s): K21.9 - Gastro-esophageal reflux disease without esophagitis Category: Medical (2) Bile acid esophageal reflux: Code(s): K21.9 - Gastro-esophageal reflux disease without esophagitis Category: Medical (3) Family history of colon cancer: Comment: Last scoped 2018 repeat in 5 years or 2022 Code(s): Z80.0 - Family history of malignant neoplasm of digestive organs Category: Medical Plan SAUDI ARABIAN #declines He has agreeable to a 5 year follow-up. The procedure was well tolerated. The results were explained and the patient is agreeable to the follow-up interval as stated. The bowel pattern has returned to normal. Education was provided to tell any 1st degree relatives about their findings to be sure that they are screened by age 45. Educated that they will be put on a recall list when it is time for their repeat scope but should they move out of state or away from the hospital they will need to remember along with their primary to repeat the procedure in a timely fashion to avoid any adverse complications. He also continues to have good control of his heartburn on his pantoprazole once a day. He has not needed to use MiraLax since adjusting fiber in his diet and this is controlling his constipation well. Return office visit in 6 months Coding Level of Care Code Est Pt Level 3 (90889) Diagnoses GERD (gastroesophageal reflux disease) K21.9 Bile acid esophageal reflux K21.9 Family history of colon cancer Z80.0
== END 2024-05-14 09:51 | disposition home or self-care (01) ==
PROVIDERS: PCP Internal Medicine Geriatric Medicine; Visit Provider Nurse Practitioner
DX: K21.9 Gastro-esophageal reflux disease without esophagitis (principal); Z80.0 Family history of malignant neoplasm of digestive organs
CPT/HCPCS: 99213

== ENCOUNTER → 2024-05-14 09:27 | Outpatient (BNVA) | payer MEDICARE, MEDICAID, SELFPAY | PROVIDERS: PCP Internal Medicine Geriatric Medicine; Visit Provider Nurse Practitioner | DX: K21.9 Gastro-esophageal reflux disease without esophagitis (principal); Z80.0 Family history of malignant neoplasm of digestive organs | CPT/HCPCS: 99212 ==

== ENCOUNTER 2024-07-03 08:01 | Outpatient (REF) | payer MEDICARE, MEDICAID, SELFPAY ==
[2024-07-03 11:18] LABS: Anion Gap 11 (12-20); Blood Urea Nitrogen 17 mg/dL (9-16); Calcium 9.7 mg/dL (8.4-10.2); Carbon Dioxide 29 mmol/L (22-29); Chloride 103 mmol/L (96-108); Cholesterol 251 mg/dL (<200); Estimated Glomerular Filt Rate > 60; Glucose Random 94 mg/dL (60-115); HDL Cholesterol 52 mg/dL (>40); LDL Cholesterol Calculated 176 mg/dL (<100); Potassium 4.4 mmol/L (3.3-5.1); Sodium 139 mmol/L (135-145); Triglycerides 116 mg/dL (<150)
== END 2024-07-03 08:02 | disposition home or self-care (01) ==
LOC: HO.HHCL 08:01
PROVIDERS: Visit Provider Internal Medicine Geriatric Medicine
DX: I10 Essential (primary) hypertension (principal); E78.00 Pure hypercholesterolemia, unspecified
CPT/HCPCS: 36415; 80048; 80061

== ENCOUNTER 2024-08-25 13:10 | Emergency (ER) | payer OTHER, MEDICARE, MEDICAID, SELFPAY ==
[2024-08-25 13:47] VITALS: BP 144/67; PULSE 56; RESP 18; TEMP 36.6; O2SAT 97; BMI 29.2
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
[2024-08-25 14:00] VITALS: BP 144/67; PULSE 56; RESP 18; TEMP 36.6; O2SAT 97
== END 2024-08-25 14:01 | disposition home or self-care (01) ==
LOC: HO.ED 13:57
PROVIDERS: Emergency Provider Emergency Medicine; PCP Internal Medicine Geriatric Medicine
DX: S16.1XXA Strain of muscle, fascia and tendon at neck level, initial encounter (principal); V43.52XA Car driver injured in collision with other type car in traffic accident, initial encounter; Y93.89 Activity, other specified; Y92.410 Unspecified street and highway as the place of occurrence of the external cause; Y99.9 Unspecified external cause status
CPT/HCPCS: 99282; 99283

== ENCOUNTER 2025-01-29 14:59 | Emergency (ER) | payer MEDICARE, MEDICAID, SELFPAY ==
--- NOTE | ~2025-01-29 | XR_ITS ---
EXAMINATION: XR KNEE, RIGHT CLINICAL INFORMATION: atraumativ right knee COMPARISON: None available. TECHNIQUE: Four views of the right knee. FINDINGS: There is mild reduction in medial and patellofemoral compartment joint space without periarticular spurring. No loose bodies or joint effusion seen. There is trace suprapatellar bursa effusion. The soft tissues are normal. XR/XR knee RT 4V IMPRESSION: Mild degenerative changes patellofemoral and medial compartments. No visible acute fracture or dislocation seen. Electronically signed by: Marco Antonio Saunders MD 01/29/2025 05:24 PM EST
[2025-01-29 15:31] VITALS: BP 143/60; PULSE 60; RESP 16; TEMP 36.3; O2SAT 95; BMI 31.5
--- NOTE | 2025-01-29 16:17 | ED.LOWEXIN ---
HPI - Extremity Injury (Lower) General Chief Complaint: Extremity Injury, Lower Stated Complaint: Pain both knees Time Seen by Provider: 01/29/25 18:14 Source: patient Limitations: no limitations History of Present Illness ED Provider: Sanaz Carrillo PA-C HPI Narrative: 64-year-old male with a history of osteoarthritis, GERD, presents with right knee pain. Patient states over the past 2 weeks he has had progressive discomfort in the right knee. There has been no preceding trauma, new activity or heavy lifting that could have precipitated his symptoms. Denies redness or swelling of the joint no fever. Related Data Home Medications ?Medication ?Instructions ?Recorded ?Confirmed cholecalciferol (vitamin D3) 25 25 mcg PO DAILY 07/17/21 04/30/24 mcg (1,000 unit) tablet (Vitamin D3) atorvastatin 10 mg tablet 10 mg PO DAILY 10/24/22 04/30/24 tadalafil 20 mg tablet (Cialis) 20 mg PO DAILY 10/24/22 04/30/24 amlodipine 10 mg tablet 10 mg PO DAILY 05/14/24 ibuprofen 800 mg tablet 800 mg PO BID PRN 05/14/24 Previous Rx's ?Medication ?Instructions ?Recorded pantoprazole 40 mg tablet,delayed 40 mg PO DAILY #90 tabs 10/24/22 release cyclobenzaprine 10 mg tablet 10 mg PO TID PRN muscle spasm #20 08/25/24 tabs ibuprofen 600 mg tablet 600 mg PO Q6H PRN pain #20 tabs 08/25/24 ketorolac 10 mg tablet 10 mg PO Q6H PRN pain #20 tabs 01/29/25 Allergies Allergy/AdvReac Type Severity Reaction Status Date / Time latex Allergy Mild Rash Verified 01/29/25 15:32 Influenza Virus Vaccines Allergy Unknown RASH Verified 01/29/25 15:32 Review of Systems Review of Systems: Yes all other systems are reviewed and are negative Constitutional: Constitutional: Denies fatigue and Denies fever(s) Musculoskeletal: Musculoskeletal: Reports arthralgias and Denies joint swelling Integumentary/Breasts: Skin/Breast: Denies erythema Endocrine: Endocrine: Denies fatigue PMFSH Past Medical History Attestation statement: The following information was validated with the patient. Medical History HTN (hypertension) Sleep apnea Hx of gastroesophageal reflux (GERD) History of high cholesterol Surgical History Hx of excision of mass History of testicular surgery Hx of colonoscopy History of esophagogastroduodenoscopy (EGD) Family History Family History Father Colon cancer Mother Alzheimer disease Brother Colon cancer, Onset Age: 60 Social History Social History Alcohol intake: never Patient Tobacco Use Status: Never used Tobacco Advance Directives: No Advance Directives Information Provided: No Do you have a plan to hurt others: No Plan Physical Exam Vital Signs: Vital Signs: Last Vital Signs Temp 97.3 F 01/29/25 15:31 Pulse 60 01/29/25 15:31 Resp 16 01/29/25 15:31 BP 143/60 H 01/29/25 15:31 Pulse Ox 95 01/29/25 15:31 O2 Del Method Room Air 01/29/25 15:31 BMI result Body Mass Index 31.5 Const: Other: Alert Orientation/consciousness: patient oriented x3 Resp: Effort & Inspection: normal respiratory effort Cardio: Other: Normal peripheral perfusion Skin: Other: Warm dry no rash Neuro: General: patient oriented x3, gait normal, no focal motor deficits and CN's II-XI intact bilaterally Extrem: Other: Able to flex and extend the knee Psych: Other: Cooperative Course Course Course Narrative: This is a Rapid Medical Examination (RME) performed by Srinath Charles PA-C in triage. Full HPI, ROS, assessment and treatment plan per primary provider in the Main ED. 64 yo georgian speaking male hx of GERD, OA here for eval of right knee pain x2 weeks. reports hx of similar in left knee which he received a corticosteroid injection for with improvement. He has not followed up with his PCP for his right knee pain and 2 weeks because they will just tell me to come to the ED . denies injury/ trauma to the knee. Denies history of gout. Plan: xr Medications Administered Discontinued Medications Generic Name Dose Route Start Last Admin Trade Name Freq PRN Reason Stop Dose Admin Ketorolac Tromethamine 15 mg 01/29/25 18:44 01/29/25 19:29 Ketorolac Tromethamine 15 Mg/Ml Vial IM 01/29/25 18:45 15 mg ONCE ONE Administration Medical Decision Making Medical Decision Making MDM Narrative: 64-year-old male with a history of osteoarthritis, GERD, presents with right knee pain. Patient states over the past 2 weeks he has had progressive discomfort in the right knee. There has been no preceding trauma, new activity or heavy lifting that could have precipitated his symptoms. Denies redness or swelling of the joint no fever. Problem: Osteoarthritis History: Per patient I have considered the following differential diagnoses: Arthritis, sprain, fracture, dislocation, septic effusion Plan: Screening x-ray was ordered from triage she has significant arthritis. There was no effusion. He also has no signs/ symptoms, or exam findings concerning for a septic joint. We will treat his pain he can follow up with his primary care and his orthopedist. I have independently reviewed the following tests: right knee: XR/XR knee RT 4V IMPRESSION: Mild degenerative changes patellofemoral and medial compartments. No visible acute fracture or dislocation seen. Electronically signed by: Marco Antonio Saunders MD 01/29/2025 05:24 PM [facility] Discharge Plan Discharge Clinical Impression: Osteoarthritis of right knee Patient Disposition: Home, Self-Care Instructions: Osteoarthritis (ED) Additional Instructions: You have significant arthritis in the right knee. See home care instructions. Use the ketorolac for your pain take it with food. You should follow up with your orthopedist for discussion about joint injections for the right knee. Call to make an appointment. Prescriptions: New ketorolac 10 mg tablet 10 mg PO Q6H PRN (Reason: pain) Qty: 20 0RF Rx Instructions: maximum total duration of 5 days from all oral, intranasal, or parenteral formulations. The patient had an intramuscular injection of Toradol in the emergency department. No Action ibuprofen 600 mg tablet 600 mg PO Q6H PRN (Reason: pain) Qty: 20 0RF cyclobenzaprine 10 mg tablet 10 mg PO TID PRN (Reason: muscle spasm) Qty: 20 0RF cholecalciferol (vitamin D3) [Vitamin D3] 25 mcg (1,000 unit) tablet 25 mcg PO DAILY tadalafil [Cialis] 20 mg tablet 20 mg PO DAILY atorvastatin 10 mg tablet 10 mg PO DAILY pantoprazole 40 mg tablet,delayed release (DR/EC) 40 mg PO DAILY Qty: 90 1RF amlodipine 10 mg tablet 10 mg PO DAILY ibuprofen 800 mg tablet 800 mg PO BID PRN Print Language: [place]
--- OUTSIDE RECORDS SUMMARY | 2025-01-29 18:01 | XMS_ITS | Clinical Summary ---
Author Organization [facility] ity Address [address] [place] [address] Care Team Providers Care Associate Software Developer Name Role Phone Name, Elvin VARELA Primary Care Provider [phone] Surgical History Surgery Date Site/Laterality Comments OTHER SURGICAL HISTORY PROCEDURE: ---- OTHER ----; COMMENT: testicar surgery after trauma ESOPHAGOGASTRODUODENOSCOPY 2012 PROCEDURE: [place] ESOPHAGOGASTRODUODENOSCOPY TRANSORAL DIAGNOSTIC; COMMENT: neg COLONOSCOPY 01/17/12 PROCEDURE: HISTORICAL COLONOSCOPY; COMMENT: internal hemorrhoids OTHER SURGICAL HISTORY PROCEDURE: ---- OTHER ----; COMMENT: Percutaneous lithotomy Medical History Medical History Date Comments Disc degeneration, lumbar 05/27/2015 DX:Dis c degeneration, lumbar Dysphagia 05/27/2015 DX:Dysphagia Erectile dysfunction 05/27/2015 DX:Erectile dysfunction Esophageal reflux 05/27/2015 DX:Esophageal reflux Hemorrhoids 05/27/2015 DX:Hemorrhoids Hx of migraine headaches 05/27/2015 DX:Hx o f migraine headaches Neck pain 05/27/2015 DX:Neck pain High cholesterol 05/11/2015 DX:High cholest tyra History of chest pain 05/27/2015 DX:History of chest pain History of abdominal pain 05/27/2015 DX:His tory of abdominal pain Migraine headache 05/27/2015 DX:Migraine he adache Tricuspid regurgitation 05/27/2015 DX:Tricu spid regurgitation; COMMENT: Mild Tension headache 05/27/2015 DX:Tension head ache Family History Relation Name Status Comments Brother 1 Alive Brother 2 Alive Brother 3 Alive Brother 4 Alive Brother 5 Alive Father Alive 90y/o Mother dementia Sister 1 Alive Sister 2 Alive Sister 3 Alive Son 1 Alive Son 2 Alive Son 3 Alive Social History Tobacco Use Types Packs/Day Years Used Date Smoking Tobacco: Never Alcohol Use Standard Drinks/Week Comments No 0 (1 standard drink = 0.6 oz pur e alcohol) Sex and Gender Information Value Date Recorded Sex Assigned at Not on file Legal Sex Male 4:51 AM EST Gender Identity Not on file Sexual Orientation Not on file Obstetrics History Plan of Treatment Health Maintenance Due Date Last Done Comments DTaP,Tdap,and Td Vaccines (1 - Tdap) 1980 Hepatitis A Vaccines (1 of 2 - Risk 2-dose series) 1980 Pneumococcal Vaccine: 50+ Ye ars (1 of 1 - PCV) 2011 Zoster Vaccines (1 of 2) 2011 Hepatitis B Vaccines (1 of 3 - Risk 3-dose series) 2021 RSV Immunization Patients 60 + Years Old (1 - Risk 60-74 years 1-dose series) 2021 Cholesterol Screening (Lipid Panel) 10/28/2022 Colorectal Cancer Screening: Colonoscopy 10/28/2022 Depression Screening 10/28/2022 HIV Screening 10/28/2022 Hepatitis C Screening 10/28/2022 Social Influencers of Health Screening 10/28/2022 COVID-19 Vaccine (2023-2 5 season) 2024 Influenza Vaccine (#1) 2024 HIB Vaccines Aged Out No longer eligi ble based on patient's age to complete this topic HPV Vaccines Aged Out No longer eligi ble based on patient's age to complete this topic IPV Vaccines Aged Out No longer eligi ble based on patient's age to complete this topic MMR Vaccines Aged Out No longer eligi ble based on patient's age to complete this topic Meningococcal ACWY Vaccine Aged Out N o longer eligible based on patient's age to complete this topic Meningococcal B Vacine Aged Out No lo nger eligible based on patient's age to complete this topic Pneumococcal Vaccine: Pediat rics (0 to 5 Years) and At-Risk Patients (6 to 64 Years) Aged Out No longer eligible b ased on patient's age to complete this topic RSV Immunization Patients Un jen 20 months Aged Out No longer eligible b ased on patient's age to complete this topic Varicella Vaccines Aged Out No longer eligible based on patient's age to complete this topic Care Teams Associate Software Developer Relationship Specialty Start Date End Date Name, MD Elvin [address] [place], [place] PCP - General Internal Medicine 04/27/15
--- OUTSIDE RECORDS SUMMARY | 2025-01-29 18:02 | XMS_ITS | Encounter Summary ---
Author Organization [facility] Address [address] [facility] [address] [place] [address] Care Team Providers Care Mushroom Laborer Name Role Phone Name, Elvin VARELA Primary Care Provider Reason for Visit * Reason Onset Date Comments Med Refill 04/02/2024 Encounter Details Date Type Department Care Team ([facility] st Contact Info) Description 04/02/2024 Telephone [facility] [address] [place] [address] Name, MD Elvin [address] [place] [address] Med Refill Social History Tobacco Use Types Packs/Day Years Used Date Smoking Tobacco: Never Smokeless Tobacco: Never Alcohol Use Standard Drinks/Week Comments Never 0 (1 standard drink = 0.6 oz pur e alcohol) Depression Answer Date Recorded Patient Health Questionnaire-9 Score 2 01/15/2024 Patient Health Questionnaire-9 Score 2 01/15/2024 Last PHQ-9: Questionnaire Data Not on file 0 01/15/2024 Housing Stability Answer Date Recorded What is your housing situation today? I have junior yeung 01/15/[address] you li ve. Do you have problems with any of the following? None of the above 01/15/2024 Food Insecurity Answer Date Recorded Within the past 12 months, y ou worried that your food would run out before you got money to buy more: Never True 01/15/2024 Within the past 12 months,th e food you bought just didn't last and you didn't have enough money to get more: Never True Transportation Answer Date Recorded In the past 12 months, has l ack of transportation kept you from medical appts, meetings, work or from getting things needed for daily living? No 01/15/2024 Utilities Answer Date Recorded In the past 12 months, has t he electric, gas, oil or water company threatened to shut off services in your home? No 01/15/2024 Depression Answer Date Recorded Patient Health Questionnaire-2 Score 0 01/15/2024 Sex and Gender Information Value Date Recorded Sex Assigned at Male 09/24/2022 10:29 AM EDT Legal Sex Male 10:29 AM EDT Gender Identity Male 09/24/2022 10:29 AM EDT Sexual Orientation Straight 09/24/2022 10 :29 AM EDT documented as of this encounter Miscellaneous Notes * Telephone Encounter - Stacia Leon LPN - 04/02/2024 9:43 AM EDT Medication discontinued therapy completed on 01/15/24. * Telephone Encounter - Laura Cotton - 04/02/2024 9:36 AM EDT TC from pt requesting medication refill. Medications needing refill : tamsulosin (Flomax) 0.4 MG 24 hr capsule To be sent to: [facility]/pharmacy #[id number] [facility] [phone] [place] [address] documented in this encounter Plan of Treatment Upcoming Encounters Date Type Department Care Team (Late st Contact Info) Description 03/09/2025 10:00 AM EDT Office Visit [facility] [address] [place] [address] Name, MD Elvin [address] [place] [address] documented as of this encounter Visit Diagnoses Not on filedocumented in this encounter Additional Health Concerns Assessment Noted Time PHQ-9 Depression Total Score: 2 01/15/20 24 10:52 AM EST documented as of this encounter Care Teams Mushroom Laborer Relationship Specialty Start Date End Date NameElvin MD [address] [place] [address] PCP - General Family Medicine 02/21/16 documented as of this encounter
--- OUTSIDE RECORDS SUMMARY | 2025-01-29 18:02 | XMS_ITS | Encounter Summary ---
Author Organization [facility] Address [address] [facility] [address] [place] [address] Care Team Providers Care Horse Show Manager Name Role Phone Name, Elvin VARELA Primary Care Provider [phone] Reason for Visit * Reason Comments Med Refill Encounter Details Date Type Department Care Team (Late st Contact Info) Description 09/08/2023 Refill [facility] [address] [place], [place] [phone] [facility] [address] [place], [place] [phone] Social History Tobacco Use Types Packs/Day Years Used Date Smoking Tobacco: Never Smokeless Tobacco: Never Alcohol Use Standard Drinks/Week Comments Never 0 (1 standard drink = 0.6 oz pur e alcohol) Housing Stability Answer Date Recorded What is your housing situation today? I have junior yeung 09/09/[address] you li ve. Do you have problems with any of the following? None of the above 09/09/2023 Food Insecurity Answer Date Recorded Within the past 12 months, y ou worried that your food would run out before you got money to buy more: Never True 09/09/2023 Within the past 12 months,th e food you bought just didn't last and you didn't have enough money to get more: Never True Transportation Answer Date Recorded In the past 12 months, has l ack of transportation kept you from medical appts, meetings, work or from getting things needed for daily living? No 09/09/2023 Utilities Answer Date Recorded In the past 12 months, has t he electric, gas, oil or water company threatened to shut off services in your home? No 09/09/2023 Depression Answer Date Recorded Patient Health Questionnaire-2 Score 0 12/24/2022 Sex and Gender Information Value Date Recorded Sex Assigned at Male 09/24/2022 10:29 AM EDT Legal Sex Male 10:29 AM EDT Gender Identity Male 09/24/2022 10:29 AM EDT Sexual Orientation Straight 09/24/2022 10 :29 AM EDT documented as of this encounter Plan of Treatment Upcoming Encounters Date Type Department Care Team (Late st Contact Info) Description 03/09/2025 10:00 AM EDT Office Visit [facility] [address] [place] [address] Name, MD Elvin [address] [place] [address] documented as of this encounter Visit Diagnoses Not on filedocumented in this encounter Care Teams Horse Show Manager Relationship Specialty Start Date End Date Name, MD Elvin [address] [place] [id number] PCP - General Family Medicine 02/21/16 documented as of this encounter
--- OUTSIDE RECORDS SUMMARY | 2025-01-29 18:02 | XMS_ITS | Encounter Summary ---
Author Organization [facility] [facility] Address [address] [facility] [address] [place] [address] Care Team Providers Care Yard Manager Name Role Phone Name, Elvin VARELA Primary Care Provider [phone] Reason for Visit * Reason Comments Med Refill Encounter Details Date Type Department Care Team (Late st Contact Info) Description 11/23/2023 Refill [facility] [address] [place], [place] [phone] Name, MD Elvin [address] [place] [address] Essential hypertension Social History Tobacco Use Types Packs/Day Years Used Date Smoking Tobacco: Never Smokeless Tobacco: Never Alcohol Use Standard Drinks/Week Comments Never 0 (1 standard drink = 0.6 oz pur e alcohol) Housing Stability Answer Date Recorded What is your housing situation today? I have juniorshreya yeung 09/09/[address] you [...] Description 03/09/2025 10:00 AM EDT Office Visit [facility] [address] [place] [address] Name, MD Elvin [address] [place] [address] documented as of this encounter Visit Diagnoses Diagnosis Essential hypertension Unspecified essential hypertension documented in this encounter Care Teams Yard Manager Relationship Specialty Start Date End Date NameElvin MD [address] [place] [address] PCP - General Family Medicine 02/21/16 documented as of this encounter
--- OUTSIDE RECORDS SUMMARY | 2025-01-29 18:02 | XMS_ITS | Clinical Summary ---
Author Organization [employer] Address [address] [facility] 7t [place] [address] Care Team Providers Care Cellophane Tester Name Role Phone Name, Elvin VARELA Primary Care Provider [phone] Allergies Active Allergy Reactions Criticality Noted Date Comments Influenza Vaccines Rash Low 02/04/2023 Influenza Virus Vaccine 05/16/2016 Latex Rash Low 03/31/2021 Simvastatin 03/28/2018 Medications Cialis 20 MG tablet TAKE 1 TABLET BY MOUTH ONCE DAILY DIRECTED 10 tablet 5 4 Active pantoprazole (ProtoNix) 40 MG EC tabletIndications: Essential hypertension TAKE 1 TABLET BY MOUTH BEFORE BREAKFAST. DO NOT CRUSH, CHEW, OR SPLIT. 90 tablet 1 4 Active D3-1000 25 MCG (1000 UT) tabletIndications: Essential hypertension TAKE 1 TABLET (25 MCG) BY MOUTH IN THE MORNING 90 tablet 1 4 Active ketoconazole (NIZOral) 2 % cream APPLY TOPICALLY TO THE AFFECTED AREA EVERY DAY 45 g 3 4 Active Diclofenac Sodium (Voltaren) 1 % gelIndications:Fle xor tenosynovitis of thumb Apply 4 grams on the affected hands twice a day 100 g 2 4 Active amLODIPine (Norvasc) 10 MG tablet Take 1 tablet (10 mg) by mouth Once per day. 30 tablet 11 4 10/01/20 25 Active atorvastatin (Lipitor) 20 MG tablet Take 1 tablet (20 mg) by mouth Once per day. 30 tablet 11 4 10/01/20 25 Active capsicum (Arthritis Pain Relieving) 0.075 % topical cream APPLY TO AFFECTED AREA 3 TIMES A DAY 114 g Active Active Problems Problem Noted Date Diagnosed Date Arthritis of knee 07/01/2024 Constipation 07/01/2024 Osteoarthritis of left knee 07/01/2024 Pre-op examination 07/01/2024 Class 1 obesity 09/18/2023 09/18/2023 BPH associated with nocturia 09/18/2023 Calculus of kidney 05/27/2023 Depression 05/27/2023 Gastroesophageal reflux disease 05/27/2023 Headache 05/27/2023 Family history of colon cancer 05/27/2023 Overview (07/01/2024): Brother Last normal [place] [facility] [place] Cubital tunnel syndrome 12/13/2022 Carpal tunnel syndrome 12/13/2022 Seborrheic dermatitis 12/13/2022 Chronic low back pain 08/16/2022 Spinal stenosis 03/18/2019 Nodule of finger of right hand 07/29/2018 MICHEAL on CPAP 03/28/2018 Tired 11/05/2017 Migraine 08/28/2017 Essential hypertension 08/28/2017 Erectile dysfunction 02/14/2017 Irritable bowel syndrome 09/19/2016 Nonulcer dyspepsia 05/17/2016 Hyperlipidemia 02/21/2016 History of cholecystectomy 02/21/2016 Dysphagia 02/21/2016 Degeneration of lumbosacral intervertebral disc 02/21/2016 Resolved Problems Problem Noted Date Diagnosed Date Resolved Date Drowsy 11/05/2017 12/24/2022 Snoring 11/05/2017 12/24/2022 Rash of genitalia 07/19/2017 05/27/2023 Encounters Date Type Department Care Team Description 01/29/2025 Orders Only [facility] External Provider, [facility] from Last 3 Months Immunizations Name Administration Dates Next Due Tdap 07/09/2017 Zoster, Recombinant 01/09/2024,10/03/2023 Social History Tobacco Use Types Packs/Day Years Used Date Smoking Tobacco: Never Passive Smoke Exposure: Never Smokeless Tobacco: Never Tobacco Cessation:Counseling Given: Not Answered Alcohol Use Standard Drinks/Week Comments Never 0 (1 standard drink = 0.6 oz pur e alcohol) Alcohol Answer Date Recorded Frequency of Alcohol Consumption Not on file 07/01/2024 Average Number of Drinks Not on file 024 Frequency of Binge Drinking Not on file 05/2024 Score 0 07/01/2024 Depression Answer Date Recorded Patient Health Questionnaire-9 [...] Orientation Straight 09/24/2022 10 :29 AM EDT Last Filed Vital Signs Vital Sign Reading Time Taken Comments Blood Pressure 128/85 10/01/2024 9:51 AM EST Pulse 64 10/01/2024 9:28 AM EST Temperature 36.4 ??C (97.5 ??F) 10/01/2024 9:28 AM ES T Respiratory Rate 20 10/01/2024 9:28 AM EST Oxygen Saturation 96% 07/01/2024 9:57 AM EDT Inhaled Oxygen Concentration - - Weight 79.3 kg (174 lb 12.8 oz) 10/01/2024 9:28 AM EST Height 162.6 cm (5' 4 ) 10/01/2024 9:28 AM EST Body Mass Index 30 10/01/2024 9:28 AM EST Plan of Treatment Upcoming Encounters Date Type Department Care Team (Late st Contact Info) Description 03/09/2025 10:00 AM EDT Office Visit [facility] [address] [facility] [place] [address] [place] [address] Health Maintenance Due Date Last Done Comments CT Colonography 1961 FIT DNA/Cologuard 1961 FIT 1960 FOBT 1960 Sigmoidoscopy 1960 Pneumococcal Vaccine: 50+ Years (1 of 1 - PCV) 2011 COVID-19 Vaccine ( - 2023- season) 2024 Influenza Vaccine (#1) 2024 Depression Screening 01/15/2025 01/15/2024, 01/15/20 24 SDOH Screening 01/15/2025 01/15/2024 Alcohol/Substance Use Screening 07/01/2025 07/01/2024 Tobacco Screening 10/01/2025 10/01/2024 DTaP/Tdap/Td Vaccines (2 - Td or Tdap) 07/09/2027 07/09/2017 Colonoscopy 05/14/2029 05/14/2024, 06/26/2018 Colorectal Cancer Screening 05/14/2029 Lipid Panel 07/03/2029 07/03/2024, 02/0 11/2022, 08/20/2022, Additional history exists RSV Patients and Patients Aged 60 years or older (1 - 1-dose 75+ series) 2036 HIV Screening Completed 03/05/2022, 02/23, 03/05/2022 Hepatitis C Screening Completed 03/05/2022 Zoster Vaccines Completed 01/09/2024, 10/03/2023 HIB Vaccines Aged Out No longer eligi ble based on patient's age to complete this topic HPV Vaccines Aged Out No longer eligi ble based on patient's age to complete this topic Hepatitis A Vaccines Aged Out No long er eligible based on patient's age to complete this topic Hepatitis B Vaccines Aged Out No long er eligible based on patient's age to complete this topic IPV Vaccines Aged Out No longer eligi ble based on patient's age to complete this topic Meningococcal Vaccine Aged Out No rowena montserrat eligible based on patient's age to complete this topic RSV under 20 months Aged Out No longe r eligible based on patient's age to complete this topic Rotavirus Vaccines Aged Out No longer eligible based on patient's age to complete this topic Procedures Procedure Name Priority Date/Time Associated Diagnosis Comments XR KNEE 4+ VIEWS RIGHT Routine 01/29/2025 4:10 PM EST LIPID PANEL, STANDARD Routine 07/03/2024 8:07 AM EDT High cholesterol HM COLONOSCOPY Routine 05/14/2024 ZZZ HISTORICAL HEPATITIS C ANTIBODY RFLX Routine 03/05/2022 10:48 AM EDT ZZZ HISTORICAL HEPATITIS B SURFACE ANTIGEN* Routine 03/05/2022 10:48 AM EDT from Last 3 Months or Most Recently Relevant to Health Maintenance Results * XR Knee 4+ Views Right (01/29/2025 4:10 PM EST) Anatomical Region Laterality Modality Lower Extremities, Knee Right Radiogra phic Imaging 01/29/2025 4:10 PM EST Narrative 01/29/2025 5:28 PM EST ? [facility] ?[address] ?[place] [address] ?XRay Report ? Signed ? Patient: Aniceto Cooper,Abrahan ?MR# ?? : [id number] ? : 1960 ?Acct:[id number] ? Age/Sex: 64 / M ?ADM Date: 03/07/25 ? Loc: HO.ED ? Attending Dr: ? Ordering Physician: Danay Charles ?? Date of Service: 01/29/25 ?? Procedure(s): XR knee RT 4V ?? Accession Number(s): [id number] ? cc: Kwabena,Elvin VARELA; Danay Charles ? EXAMINATION: ?? XR KNEE, RIGHT ? CLINICAL INFORMATION: ?? atraumativ right knee ? COMPARISON: ?? None available. ? TECHNIQUE: ?? Four views of the right knee. ? FINDINGS: ?? There is mild reduction in medial and patellofemoral compartment joint ?? space without periarticular spurring. No loose bodies or joint effusion ?? seen. There is trace suprapatellar bursa effusion. The soft tissues are ?? normal. ? XR/XR knee RT 4V ?? IMPRESSION: ?? Mild degenerative changes patellofemoral and medial compartments. No ?? visible acute fracture or dislocation seen. ? Electronically signed by: ??Marco Antonio Saunders MD ??01/29/2025 05:24 PM EST RP ? Dictated By: ?Marco Antonio Saunders MD ? Signed By: ?<Electronically signed by Marco Antonio Saunders MD in OV> ?01/29/25 1724 ? DD/ 1610 ? TD/TT: 01/29/25 1622 ? Shopping Centre Manager: MSM ? Procedure Note Marc Garcia - 01/29/[address] [address] XRay Report Signed Patient: Abrahan EganMR# : [id number] : 1960cct:[id number] Age/Sex: 64 / MADM Date: 01/29/25 Loc: HO.ED Attending Dr: Ordering Physician: Danay Charles Date of Service: 01/29/25 Procedure(s): XR knee RT 4V Accession Number(s): [id number] cc: Elvin Yuan MD; Danay Charles EXAMINATION: XR KNEE, RIGHT CLINICAL INFORMATION: atraumativ right knee COMPARISON: None available. TECHNIQUE: Four views of the right knee. FINDINGS: There is mild reduction in medial and patellofemoral compartment joint space without periarticular spurring. No loose bodies or joint effusion seen. There is trace suprapatellar bursa effusion. The soft tissues are normal. XR/XR knee RT 4V IMPRESSION: Mild degenerative changes patellofemoral and medial compartments. No visible acute fracture or dislocation seen. Electronically signed by: Marco Antonio Saunders MD 01/29/2025 05:24 PM EST Dictated By: Marco Antonio Saunders MD Signed By: <Electronically signed by Marco Antonio Saunders MD in OV> 01/29/25 1724 DD/ 1610 TD/TT: 01/29/25 1622 Shopping Centre Manager: ELIAS [facility] External Provider IMG XR PROCEDURES Final Result * (ABNORMAL) Lipid Panel, Standard (07/03/2024 8:07 AM EDT) Triglycerides 116 <150 mg/dL [facility] Comment:Desirable Triglyceri de: less than 150 mg/dLBorderline High Triglyceride 150-199 mg/dLHigh Triglyceride: 200-499 mg/dLVery High Triglyceride: greater than or equal to 5OO mg/dL Cholesterol 251(H) <200 mg/dL [facility] Comment:Desirable Cholestero l: less than 200 mg/dLBorderline High Cholesterol: 200-239 mg/dLHigh Cholesterol: greater than 239 mg/dL LDL Cholesterol Calculated 176(H) <100 mg/dL [facility] Comment:Desirable LDL: less than 100 mg/dLNear Optimal/Above Optimal LDL: 110- 129 mg/dLBorderline High LDL: 130-159 mg/dLHigh LDL: 160-189 mg/dLVery High LDL: greater than or equal to 190 mg/dL HDL Cholesterol 52 >40 mg/dL [facility] Comment:Desirable HDL: great er than 40 mg/dL Note: This HDL assay may give artificially low results in patients with liver disease. Blood Venous blood specimen / Unknown 07/03/2024 8:07 AM EDT 07/03/2024 10:51 AM EDT Elvin Yuan MD LAB BLOOD ORDERABLES Final Resul t [facility] [address] [place] [address] [phone] * (ABNORMAL) Hm Colonoscopy (05/14/2024) [facility] Colonoscopy Abnormal(A ) Normal Elvin Yuan MD HEALTH MAINTENANCE Final Result * HEPATITIS C ANTIBODY RFLX (03/05/2022 10:48 AM EDT) [facility] Hepatitis C Antibody Nonreactive Nonreactive [facility] Comment: Antibodies to HCV not detected; does not exclude early acute HCV infection. 03/05/2022 10:4 8 AM EDT Elvin Yuan MD HISTORICAL/NON ORDERABLE LABS Fi nal Result Performing Organization Address [facility] Co de Phone Number [facility] [address] * HEPATITIS B SURFACE ANTIGEN* (03/05/2022 10:48 AM EDT) [facility] Hepatitis B Surface Antigen Negative Negative [facility] Hepatitis B Surface Antibody REACTIVE Nonreactive [facility] Comment:REACTIVE: > 11.99 mI U/mL HIV AB/AG Nonreactive Nonreactive [facility] Comment: HIV-1 p24 Ag and/or HIV-1/HIV-2 Ab not detected. ?? A test result that is nonreactive does not exclude the possibility of exposure to or infection with HIV-1 and/or HIV-2. Nonreactive results in this assay for individuals with prior exposure to HIV-1 and/or HIV-2 may be due to antigen and antibody levels that are below the limit of detection of this assay. ?? [employer] HIV Ag/Ab Combo assay result and supplemental assay results should be interpreted in conjunction with the patient's clinical presentation, history and other laboratory results. ??If the results are inconsistent with clinical evidence, additional testing is suggested to confirm the result. Hepatitis B Core Antibody Reactive Nonreactive [facility] Comment:Presumptive evidence of anti-HBc. 03/05/2022 10:4 8 AM EDT Elvin Yuan MD HISTORICAL/NON ORDERABLE LABS Fi nal Result Performing Organization Address [facility]/ZIP Co de Phone Number [facility] [address] from Last 3 Months or Most Recently Relevant to Health Maintenance Insurance [place] [phone] [facility] Care Teams Cellophane Tester Relationship Specialty Start Date End Date Name, MD Elvin [address] [place] [id number] PCP - General Family Medicine 02/21/16
--- OUTSIDE RECORDS SUMMARY | 2025-01-29 18:02 | XMS_ITS | Encounter Summary ---
Author Organization [employer] Address [address] [facility] 7[address] [place] [address] Care Team Providers Care Astronaut Mission Specialist Name Role Phone Name, Elvin VARELA Primary Care Provider Encounter Details Date Type Department Care Team ([facility] st Contact Info) Description 01/29/2025 Orders Only [facility] External Provider, [facility] Social History Tobacco Use Types Packs/Day Years Used Date Smoking Tobacco: Never Passive Smoke Exposure: Never Smokeless Tobacco: Never Alcohol Use Standard [...] Description 03/09/2025 10:00 AM EDT Office Visit [facility] MEDICINE [address] [place] [address] Name, MD Elvin [address] [place] [address] documented as of this encounter Procedures Procedure Name Priority Date/Time Associated Diagnosis Comments XR KNEE 4+ VIEWS RIGHT Routine 01/29/2025 4:10 PM EST documented in this encounter Results * XR Knee 4+ Views Right (01/29/2025 4:10 PM EST) Anatomical Region Laterality Modality Lower Extremities, Knee Right [facility] Imaging 01/29/2025 4:10 PM EST Narrative 01/29/2025 5:28 PM EST ? [facility] ?[address] ?[place] [address] ?XRay Report ? Signed ? Patient: Aniceto Kenneth,Abrahan ?MR# ?? : [id number] ? : 1960 ?Acct:[id number] ? Age/Sex: 64 / M ?ADM Date: 03/07/25 ? Loc: HO.ED ? Attending Dr: ? Ordering Physician: Danay Charles ?? Date of Service: 01/29/25 ?? Procedure(s): XR knee RT 4V ?? Accession Number(s): [id number] ? cc: Name,Elvin VARELA; Danay Charles ? EXAMINATION: ?? XR [...] DD/ 1610 ? TD/TT: 01/29/25 1622 ? Drilling Contractor: MSM ? Procedure Note Donaleksanderter, Image - 01/29/[address] [address] XRay Report Signed Patient: Abrahan EganMR# : [id number] : 1Acct:[id number] Age/Sex: 64 / MADM Date: 01/29/25 Loc: HO.ED Attending Dr: Ordering Physician: Danay Charles Date of Service: 01/29/25 Procedure(s): XR knee RT 4V Accession Number(s): [id number] cc: Elvin Yuan MD; Danay Charles EXAMINATION: [...] 01/29/25 1724 DD/ 1610 TD/TT: 01/29/25 1622 Drilling Contractor: ELIAS [facility] External Provider IMG XR PROCEDURES Final Result documented in this encounter Visit Diagnoses Not on filedocumented in this encounter Additional Health Concerns Assessment Noted Time PHQ-9 Depression Total Score: 2 01/15/20 24 10:52 AM EST documented as of this encounter Care Teams Astronaut Mission Specialist Relationship Specialty Start Date End Date Name, MD Elvin [address] [place] [address] PCP - General Family Medicine 02/21/16 documented as of this encounter
[2025-01-29] MEDS: Ketorolac Tromethamine 15 MG/ML VIAL IM (19:29)
[2025-01-29 20:24] VITALS: BP 142/66; PULSE 66; RESP 18; TEMP 36.6; O2SAT 97
[2025-01-29 20:30] VITALS: BP 142/66; PULSE 66; RESP 18; TEMP 36.6; O2SAT 97
== END 2025-01-29 20:30 | disposition home or self-care (01) ==
PROVIDERS: Emergency Provider Emergency Medicine Emergency Medical Services; PCP Internal Medicine Geriatric Medicine
DX: M17.11 Unilateral primary osteoarthritis, right knee (principal); I10 Essential (primary) hypertension
CPT/HCPCS: 73564; 96372; 99284; J1885

== ENCOUNTER → 2025-01-29 15:34 | Outpatient (BNV) | payer MEDICARE, MEDICAID, SELFPAY | PROVIDERS: PCP Internal Medicine Geriatric Medicine; Visit Provider Radiology Diagnostic Radiology | DX: M25.561 Pain in right knee (principal) | CPT/HCPCS: 73564 ==

== ENCOUNTER 2025-03-12 13:01 | Outpatient (AMB) | payer OTHER, MEDICARE, MEDICAID, SELFPAY ==
--- NOTE | 2025-03-12 13:06 | A.OFFVIS_ITS ---
Vital Signs 03/12/25 13:07 Height 5 ft 2 in Weight 171 lb 15.369 oz BMI 31.4 BP 146/67 H Blood Pressure Location Lt brachial Position Sitting Pulse 69 Intake Visit Reasons: Follow up 10 months Intake Note: Abrahan presents in the office as a 10 month follow up. CC: He states that he is feeling good and just here as a follow up! Tuber Machine Operator Helper Required: No Allergies latex Allergy (Mild, Verified 03/12/25 13:14) Rash Influenza Virus Vaccines Allergy (Unknown, Verified 03/12/25 13:14) RASH HPI HPI Follow up 10 months: Details: Assessment & Plan (1) GERD (gastroesophageal reflux disease): Code(s): K21.9 - Gastro-esophageal reflux disease without esophagitis Category: Medical (2) Bile acid esophageal reflux: Code(s): K21.9 - Gastro-esophageal reflux disease without esophagitis Category: Medical (3) Family history of colon cancer: Comment: Last scoped 2017 repeat in 5 years or 2022 Code(s): Z80.0 - Family history of malignant neoplasm of digestive organs Category: Medical Plan FRISIAN #declines He has agreeable to a 5 year follow-up. The procedure was well tolerated. The results were explained and the patient is agreeable to the follow-up interval as stated. The bowel pattern has returned to normal. Education was provided to tell any 1st degree relatives about their findings to be sure that they are screened by age 45. Educated that they will be put on a recall list when it is time for their repeat scope but should they move out of state or away from the hospital they will need to remember along with their primary to repeat the procedure in a timely fashion to avoid any adverse complications. He also continues to have good control of his heartburn on his pantoprazole once a day. He has not needed to use MiraLax since adjusting fiber in his diet and this is controlling his constipation well. Return office visit in 6 months TODAY'S VISIT FRISIAN #garcía He has a new concern of borborygmus w/o any CIC or diarrhea. At times he has cramping. No alarm sx this is mostly annoying for him. Trial of bently 10mg qid prn. He is doing well on his pantoprazole 40mg qd. ROV 3 mos to danny brewster. [facility] Medical History (Updated 03/12/25 @ 13:42 by EARL Perry) Constipation HTN (hypertension) Sleep apnea Hx of gastroesophageal reflux (GERD) History of high cholesterol Surgical History Hx of excision of mass History of testicular surgery Hx of colonoscopy History of esophagogastroduodenoscopy (EGD) Family History Father Colon cancer Mother Alzheimer disease Brother Colon cancer, Onset Age: 60 Social History Alcohol intake: never Patient Tobacco Use Status: Never used Tobacco Review of Systems Const Denies fatigue, Denies fever(s), Denies night sweats, Denies poor appetite and Denies weight loss ENT Reports Normal hearing present, Denies dental pain, Denies dysphagia, Denies hearing loss, Denies mouth pain, Denies odynophagia, Denies throat swelling, Denies tongue swelling and Reports other (Dentition adequate) Card Reports no additional complaints Resp Reports no additional complaints GI Details: Denies abdominal pain, Denies melena, Denies bloating, Denies hematochezia, Denies constipation, Reports GI cramping, Denies dysphagia, Denies excessive flatus, Denies early satiety, Reports heartburn, Denies diarrhea, Denies nausea, Denies odynophagia, Denies vomiting and Denies hematemesis Skin/Breast Denies pruritus, Denies lesions, Denies rash and Denies jaundice Neuro Reports Normal hearing present and Denies Abnormal speech present Endo Denies fatigue Aller/Immun Denies throat swelling and Denies tongue swelling Physical Exam Vital Signs: Last Vital Signs Pulse 69 03/12/25 13:07 BP 146/67 H 03/12/25 13:07 BMI result Body Mass Index 31.4 Const General: cooperative, no acute distress, well developed and well groomed Nutritional Appearance: well nourished and obese Orientation/consciousness: oriented to person, oriented to place and oriented to time Limitations: language barrier HEENT Head: Yes normocephalic and Yes atraumatic Eyes General: appearance normal, both eyes and all related structures Pupils: Equal, round and reactive pupils present Neck Neck: Yes normal visual inspection and Yes no lymphadenopathy Thyroid: Thyroid normal Resp Effort & Inspection: normal respiratory effort and able to speak in complete sentences Auscultation: clear to auscultation bilaterally Cardio Rate: regular rate Rhythm: regular rhythm Heart sounds: Normal, physiologic split S2 sound present Peripheral pulses: radial pulses present and posterior tibial pulses present GI Inspection: No distended, No Abdominal panniculus present and Yes obesity Palpation (GI): Soft to palpation, nontender, no guarding, not rigid and No hepatosplenomegaly present Percussion: Yes normal to percussion Auscultation: normal bowel sounds Rectal Exam - Male: Yes deferred Skin General skin exam: no rashes or lesions noted, turgor normal, skin not dry, no jaundice, No spider nevi and no striae Rashes: no rashes Nails: normal Neuro General: oriented to person, oriented to place and oriented to time Cranial nerves: Yes Equal, round and reactive pupils present and Yes Normal hearing present Speech: No Abnormal speech present Extrem General: Yes normal to inspection, No clubbing, No cyanosis and No edema Psych Appearance: grossly normal and well kempt Mental Status: mental status grossly normal Speech and movement: Normal speech and movement present Affect: normal affect Attitude: cooperative Thought process: Normal thought process present and not confabulating Thought content: Normal thought content present Insight: Limited insight present (Psych) Judgement: Limited judgement present (Psych) Assessment & Plan Assessment & Plan (1) GERD (gastroesophageal reflux disease): Code(s): K21.9 - Gastro-esophageal reflux disease without esophagitis Category: Medical (2) Bile acid esophageal reflux: Code(s): K21.9 - Gastro-esophageal reflux disease without esophagitis Category: Medical (3) IBS (irritable bowel syndrome): Code(s): K58.9 - Irritable bowel syndrome, unspecified Category: Medical Plan FRISIAN #declines He has a new concern of borborygmus w/o any CIC or diarrhea. At times he has cramping. No alarm sx this is mostly annoying for him. Trial of bently 10mg qid prn. He is doing well on his pantoprazole 40mg qd. ROV 3 mos to eval bentyl. Medications: New dicyclomine 10 mg PO QID PRN 120 caps 3RF abdominal pain K21.9 - Gastro- esophageal reflux disease without esophagitis, K58.9 - Irritable bowel syndrome, unspecified Refilled pantoprazole 40 mg PO DAILY 90 tabs 1RF K21.9 - Gastro-esophageal reflux disease without esophagitis pantoprazole 40 mg PO DAILY 90 tabs 1RF K21.9 - Gastro-esophageal reflux disease without esophagitis Coding Level of Care Code Est Pt Level 3 (54743) Diagnoses GERD (gastroesophageal reflux disease) K21.9 Bile acid esophageal reflux K21.9 IBS (irritable bowel syndrome) K58.9
[2025-03-12 13:07] VITALS: BP 146/67; PULSE 69; BMI 31.4
--- OUTSIDE RECORDS SUMMARY | 2025-03-12 13:35 | XMS_ITS | Encounter Summary ---
Author Organization [employer] Address [address] [facility] 7t [place] [address] Care Team Providers Care Assistant Maintenance Manager Name Role Phone Name, Elvin VARELA Primary Care Provider [phone] Encounter Details Date Type Department Care Team (Latest Contact Info) Description 03/09/2025 Travel Social History Tobacco Use Types Packs/Day Years Used Date Smoking Tobacco: Never Passive Smoke Exposure: Never Smokeless Tobacco: Never Alcohol Use Standard Drinks/Week Comments Never 0 (1 standard drink = 0.6 oz pur e alcohol) Depression Answer Date Recorded Patient Health Questionnaire-9 Score 0 03/09/2025 Patient Health Questionnaire-9 Score 0 03/09/2025 Last PHQ-9: Questionnaire Data Not on file 0 03/09/2025 Housing Stability Answer Date Recorded What is [...] Date Recorded Patient Health Questionnaire-2 Score 0 03/09/2025 Sex and Gender Information Value Date Recorded Sex Assigned at Male 09/24/2022 10:29 AM EDT Legal Sex Male 10:29 AM EDT Gender Identity Male 09/24/2022 10:29 AM EDT Sexual Orientation Straight 09/24/2022 10 :29 AM EDT documented as of this encounter Plan of Treatment Not on file documented as of this encounter Visit Diagnoses Not on filedocumented in this encounter Additional Health Concerns Assessment Noted Time PHQ-9 Depression Total Score: 0 03/09/20 25 10:06 AM EDT documented as of this encounter Care Teams Assistant Maintenance Manager Relationship Specialty Start Date End Date Name, MD Elvin [address] [place] [address] PCP - General Family Medicine 02/21/16 documented as of this encounter
--- OUTSIDE RECORDS SUMMARY | 2025-03-12 13:35 | XMS_ITS | Clinical Summary ---
Author Organization [facility] ity Address [address] [place] [address] Care Team Providers Care Loading Machine Tool Setter Name Role Phone Name, Elvin VARELA Primary Care Provider [phone] Surgical History Surgery Date Site/Laterality Comments OTHER SURGICAL HISTORY PROCEDURE: ---- OTHER ----; COMMENT: testicar surgery after trauma ESOPHAGOGASTRODUODENOSCOPY 2012 PROCEDURE: UT ESOPHAGOGASTRODUODENOSCOPY TRANSORAL DIAGNOSTIC; COMMENT: neg COLONOSCOPY 01/17/12 [...] - Risk 3-dose series) 2021 RSV Immunization Adult Patie nts (1 - Risk 60-74 years 1-dose series) 2021 Cholesterol Screening (Lipid Panel) 10/28/2022 Colorectal Cancer Screening: Colonoscopy 10/28/2022 Depression Screening 10/28/2022 HIV Screening 10/28/2022 Hepatitis C Screening 10/28/2022 Social Influencers of Health Screening 10/28/2022 COVID-19 Vaccine (2023-2 5 season) 2024 Influenza Vaccine (Season Ended) 2025 HIB Vaccines Aged Out No longer eligi [...] age to complete this topic Meningococcal B Vaccine Aged Out No l onger eligible based on patient's age to complete [...] age to complete this topic Care Teams Loading Machine Tool Setter Relationship Specialty Start Date End Date Name, MD Elvin [address] [place] [address] PCP - General Internal Medicine 04/27/15
--- OUTSIDE RECORDS SUMMARY | 2025-03-12 13:35 | XMS_ITS | Encounter Summary ---
Author Organization [employer] Address [address] [facility] 7t [place] [address] Care Team Providers Care Silicator Name Role Phone Elvin Yuan MD Primary Care Provider [phone] Reason for Referral * Consultation (Routine) - Authorized Specialty Diagnoses / Procedures Referred By Scott t Referred To Contact Cardiology Diagnoses Chest pain, unspecified type Essential hypertension Elvin Yuan MD [address] [place] [address] Phone: tel: fax: [facility] [address] [place], [place] Phone: tel: fax: Referral ID Status Reason Start Date Expiration Date Visits Requested Visits Authorized [id number] Authorized Specialty Services Required 03/09/2025 03/09/2026 1 1 Reason for Visit * Reason Comments Hypertension Encounter Details Date Type Department Care Team (Late st Contact Info) Description 03/09/2025 10:00 AM EDT Office Visit [facility] [address] [place], [place] [phone] Elvin Yuan MD [address] [place], [place] [phone] Chest pain, unspecified type (Primary Dx); Essential hypertension Social History Tobacco Use Types [...] AM EDT documented as of this encounter Last Filed Vital Signs Vital Sign Reading Time Taken Comments Blood Pressure 172/91 03/09/2025 9:49 AM EDT Pulse 62 03/09/2025 9:49 AM EDT Temperature 36.9 ??C (98.4 ??F) 03/09/2025 9:49 AM ED T Respiratory Rate 12 03/09/2025 9:49 AM EDT Oxygen Saturation 97% 03/09/2025 9:49 AM EDT Inhaled Oxygen Concentration - - Weight 78.8 kg (173 lb 12.8 oz) 03/09/2025 9:49 AM EDT Height 162.6 cm (5' 4 ) 03/09/2025 9:49 AM EDT Body Mass Index 29.83 03/09/2025 9:49 AM EDT documented in this encounter Progress Notes * Elvin Name, - 03/09/2025 10:00 AM EDT Images from the original note were not included. Subjective Patient ID: Abrahan Moreland is a 64 y.o. male who presents for Hypertension. Patient comes for a follow-up visit. His BP is elevated. He explains to me that he stopped using all his medications several months ago because he was hoping to find natural remedies for hypertensionand high cholesterol. He is asymptomatic during his visit but he admits to occasional chest discomfort that usually occurs at rest but sometimes occurs with exertion. He denies any shortness of breath, no palpitations, no orthopnea or edema. Review of Systems Constitutional: Negative for chills, fatigue and fever. HENT: Negative for sore throat. Respiratory: Negative for cough, chest tightness and shortness of breath. Cardiovascular: Positive for chest pain. Negative for palpitations and leg swelling. Gastrointestinal: Negative for abdominal pain and blood in stool. Visit Vitals BP (!) 172/91 (BP Location: Left arm, Patient Position: Sitting, BP Cuff Size: Adult) Pulse 62 Temp 98.4 ??F (36.9 ??C) (Temporal) Resp 12 Ht 5' 4 (1.626 m) Wt 173 lb 12.8 oz (78.8 kg) SpO2 97% BMI 29.83 kg/m?? Smoking Status Never BSA 1.89 m?? Objective Physical Exam Constitutional: Appearance: Normal appearance. Cardiovascular: Rate and Rhythm: Normal rate and regular rhythm. Heart sounds: No murmur heard. Pulmonary: Effort: Pulmonary effort is normal. No respiratory distress. Breath sounds: No wheezing, rhonchi or rales. Abdominal: Palpations: Abdomen is soft. Tenderness: There is no abdominal tenderness. Musculoskeletal: Right lower leg: No edema. Left lower leg: No edema. Neurological: Mental Status: He is alert. Latest Reference Range & Units 07/03/24 08:07 Glucose 60 - 115 mg/dL 94 Urea Nitrogen (BUN) 9 - 16 mg/dL 17 (H) Creatinine, Serum 0.5 - 1.4 mg/dL 1.14 Sodium 135 - 145 mmol/L 139 Potassium 3.3 - 5.1 mmol/L 4.4 Chloride 96 - 108 mmol/L 103 Carbon Dioxide 22 - 29 mmol/L 29 Calcium 8.4 - 10.2 mg/dL 9.7 Anion Gap 12 - 20 11 (L) Cholesterol <200 mg/dL 251 (H) HDL Cholesterol >40 mg/dL 52 LDL Cholesterol Calculated <100 mg/dL 176 (H) Triglycerides <150 mg/dL 116 Estimated Glomerular Filt Rate >60 (H): Data is abnormally high (L): Data is abnormally low ECG 12 lead Order: [id number] Status: Edited Result - FINAL Visible to patient: No (inaccessible in MyChart) Next appt: None Dx: Chest pain, unspecified type 0 Result Notes Narrative Normal sinus rhythm. Heart rate of 61. Minor inferior repolarization disturbance. This is unchanged from EKGs from several years ago. Exam Ended: 03/09/25 10:17 Last Resulted: 03/09/25 10:18 Assessment/Plan Diagnoses and all orders for this visit: Chest pain, unspecified type Comments: I recommended to restart his amlodipine and statin. I recommend referral to cardiology for stress testing. Follow after cardi evaluation. Orders: - Referral to Cardiology; Future - ECG 12 lead Essential hypertension - Referral to Cardiology; Future documented in this encounter Plan of Treatment Scheduled Referrals Name Type Priority Associated Diagnoses Orde r Schedule Referral to Cardiology Outpatient Referral Routine Chest pain, unspecified type Essential hypertension Expected: 03/09/2025 (Approximate), Expires: 03/09/2026 documented as of this encounter Procedures Procedure Name Priority Date/Time Associated Diagnosis Comments ECG 12-LEAD Routine 03/09/2025 10:17 AM EDT Chest pain, unspecified type documented in this encounter Results * ECG 12 lead (03/09/2025 10:17 AM EDT) Narrative Name, MD Elvin - 03/09/2025 10:17 AM EDT Normal sinus rhythm. ??Heart rate of 61. ??Minor inferior repolarization disturbance. ??This is unchanged from EKGs from several years ago. Elvin Yuan MD ECG ORDERABLES Edited Result - Final documented in this encounter Visit Diagnoses Diagnosis Chest pain, unspecified type- Primary Essential hypertension Unspecified essential hypertension documented in this encounter Additional Health Concerns Assessment Noted Time PHQ-9 Depression Total Score: 0 03/09/20 25 10:06 AM EDT documented as of this encounter Care Teams Silicator Relationship Specialty Start Date End Date Name, MD Elvin [address] [place] [address] PCP - General Family Medicine 02/21/16 documented as of this encounter
--- OUTSIDE RECORDS SUMMARY | 2025-03-12 13:35 | XMS_ITS | Encounter Summary ---
Author Organization [employer] Address [address] [place] [address] 7t [place] [address] Care Team Providers Care Rod Greaser Name Role Phone Name, Elvin VARELA Primary Care Provider [phone] Encounter Details Date Type Department Care Team ([facility] st Contact Info) Description 03/18/2023 Orders Only [facility] [address] [place] [address] Stacia Leon LPN Social History Tobacco Use Types Packs/Day Years Used Date Smoking Tobacco: Never Smokeless Tobacco: Never Depression Answer Date Recorded Patient Health Questionnaire-2 [...] on filedocumented in this encounter Care Teams Rod Greaser Relationship Specialty Start Date End Date Name, MD Elvin [address] [place] [address] PCP - General Family Medicine 02/21/16 documented as of this encounter
--- OUTSIDE RECORDS SUMMARY | 2025-03-12 13:35 | XMS_ITS | Clinical Summary ---
Author Organization [employer] Address [address] [facility] 7t [place] [address] Care Team Providers Care Nurse Sexual Assault Name Role Phone Name, Elvin VARELA Primary Care Provider [phone] Allergies Active Allergy Reactions Criticality Noted Date Comments Influenza Vaccines Rash Low 02/04/2023 Influenza Virus Vaccine 05/16/2016 Latex Rash Low 03/31/2021 Simvastatin 03/28/2018 Medications Cialis 20 MG tablet TAKE 1 TABLET BY MOUTH ONCE DAILY DIRECTED 10 tablet 5 4 Active D3-1000 25 MCG (1000 UT) [...] AREA 3 TIMES A DAY 114 g 4 Active pantoprazole (ProtoNix) 40 MG EC tabletIndications: Essential hypertension TAKE 1 TABLET BY MOUTH BEFORE BREAKFAST. DO NOT CRUSH, CHEW, OR SPLIT. 90 tablet 1 Active Active Problems Problem Noted Date Diagnosed Date Arthritis of knee 07/01/2024 Constipation 07/01/2024 Osteoarthritis of left knee 07/01/2024 Pre-op examination 07/01/2024 Class 1 obesity 09/18/2023 09/18/2023 BPH associated with nocturia 09/18/2023 Calculus of kidney 05/27/2023 Depression 05/27/2023 Gastroesophageal reflux disease 05/27/2023 Headache 05/27/2023 Family history of colon cancer 05/27/2023 Overview (07/01/2024): Brother [place] [facility] [place] Cubital tunnel syndrome 12/13/2022 Carpal tunnel [...] Encounters Date Type Department Care Team Description 03/09/2025 10:00 AM EDT Office Visit [facility] [address] [place] [address] Elvin Yuan MD Chest pain, unspecified type (Primary Dx); Essential hypertension 03/09/2025 Travel 03/04/2025 Telephone [facility] [address] [place] [address] Jigna Nascimento [place] CHART PREP 03/02/2025 Travel 02/06/2025 Refill [facility] [address] [place] [address] Elvin Yuan MD Essential hypertension 02/05/2025 Population Health Risk Score [facility] [address] [place] [address] Provider, Population Health Generic 01/29/2025 Orders Only [facility] External Provider, [facility] from Last 3 Months Immunizations Name [...] Mass Index 29.83 03/09/2025 9:49 AM EDT Plan of Treatment Health Maintenance Due Date Last Done Comments CT Colonography 1961 FIT DNA/Cologuard 1961 FIT 1961 FOBT 1961 Sigmoidoscopy 1961 Pneumococcal Vaccine: 50+ Years (1 of 1 - PCV) 2011 COVID-19 Vaccine (1 - 2023- season) 2024 Influenza Vaccine (#1) 2024 SDOH Screening 01/15/2025 01/15/2024 Alcohol/Substance Use Screening 07/01/2025 07/01/2024 Depression Screening 03/09/2026 03/09/2025, 03/09/20 Tobacco Screening 03/09/2026 03/09/2025 DTaP/Tdap/Td Vaccines (2 - Td or Tdap) [...] 10:17 AM EDT Chest pain, unspecified type XR KNEE 4+ VIEWS RIGHT Routine 01/29/2025 4:10 PM EST LIPID PANEL, STANDARD Routine 07/03/2024 8:07 AM EDT High cholesterol HM COLONOSCOPY Routine 05/14/2024 ZZZ HISTORICAL HEPATITIS C ANTIBODY RFLX Routine 03/05/2022 10:48 AM EDT ZZZ HISTORICAL HEPATITIS B SURFACE ANTIGEN* Routine 03/05/2022 10:48 AM EDT from Last 3 Months or Most Recently Relevant to Health Maintenance Results * ECG 12 lead (03/09/2025 10:17 AM EDT) Narrative Name, MD Elvin - 03/09/2025 10:17 AM EDT Normal sinus rhythm. ??Heart rate of 61. ??Minor inferior repolarization disturbance. ??This is unchanged from EKGs from several years ago. us Elvin Name ECG ORDERABLES Edited Result - Final * XR Knee 4+ Views Right (01/29/2025 4:10 PM EST) Anatomical Region Laterality Modality Lower Extremities, Knee Right Radiogra phic Imaging 01/29/2025 4:10 PM EST Narrative 01/29/2025 5:28 PM EST ? [facility] ?[address] ?[place] [address] ?XRay Report ? Signed ? Patient: Aniceto Cooper,Abrahan ?MR# ?? : [id number] ? : 1960 ?Acct:[id number] ? Age/Sex: 64 / M ?ADM Date: 01/29/25 ? Loc: HO.ED ? Attending Dr: ? Ordering Physician: Danay Charles ?? Date of Service: 01/29/25 ?? Procedure(s): XR knee RT 4V ?? Accession Number(s): [id number] ? cc: Name,Elvin VARELA; Danay Charles ? [...] or dislocation seen. ? Electronically signed by: ??aMrco Antonio Saunders MD ??01/29/2025 05:24 PM EST RP ? Dictated By: ?Marco Antonio Saunders MD ? Signed By: ?<Electronically signed by Marco Antonio Saunders MD in OV> ?01/29/25 1724 ? DD/ 1610 ? TD/TT: 01/29/25 1622 ? Electric Powerline Examiner: MSM ? Procedure Note Marc Garcia - 01/29/[address] [address] XRay Report Signed Patient: Abrahan EganMR# : [id number] : 1Acct:[id number] Age/Sex: 64 / MADM Date: 01/29/25 Loc: HO.ED Attending Dr: Ordering Physician: Danay Charles Date of Service: 01/29/25 Procedure(s): XR knee RT 4V Accession Number(s): [id number] cc: Kwabena,Elvin VARELA; Danay Charles EXAMINATION: XR KNEE, RIGHT CLINICAL [...] Marco Antonio Saunders MD 01/29/2025 05:24 PM [facility] Dictated By: Marco Antonio Saunders MD Signed By: <Electronically signed by Marco Antonio Saunders MD in OV> 01/29/25 1724 DD/ 1610 TD/TT: 01/29/25 1622 Electric Powerline Examiner: ELIAS [facility] External Provider IMG XR PROCEDURES Final Result * (ABNORMAL) Lipid Panel, Standard (07/03/2024 8:07 AM EDT) Triglycerides 116 <150 mg/dL [facility] Comment:Desirable Triglyceri de: less than 150 mg/dLBorderline High Triglyceride 150-199 mg/dLHigh Triglyceride: 200-499 mg/dLVery High Triglyceride: greater than or equal to 5OO mg/dL Cholesterol 251(H) <200 mg/dL [facility] Comment:Desirable Cholestero l: less than 200 mg/dLBorderline High Cholesterol: 200-239 mg/dLHigh Cholesterol: greater than 239 mg/dL LDL Cholesterol Calculated 176(H) <100 mg/dL [facility] Comment:Desirable LDL: less than 100 mg/dLNear Optimal/Above Optimal LDL: 110- 129 mg/dLBorderline High LDL: 130-159 mg/dLHigh LDL: 160-189 mg/dLVery High LDL: greater than or equal to 190 mg/dL HDL Cholesterol 52 >40 mg/dL [facility] Comment:Desirable HDL: great er than 40 mg/dL Note: This HDL assay may give artificially low results in patients with liver disease. Blood Venous blood specimen / Unknown 07/03/2024 8:07 AM EDT 07/03/2024 10:51 AM EDT us Elvin Yuan MD LAB BLOOD ORDERABLES Final Resul t Performing Organization Address City/[facility]/ZIP Co de Phone Number [facility] [address] [place] [address] [phone] * (ABNORMAL) Hm Colonoscopy (05/14/2024) Colonoscopy Abnormal(A ) Normal us Elvin Yuan MD HEALTH MAINTENANCE Final Result * HEPATITIS C ANTIBODY RFLX (03/05/2022 10:48 AM EDT) Hepatitis C Antibody Nonreactive Nonreactive [facility] Comment: Antibodies to HCV not detected; does not exclude early acute HCV infection. 03/05/2022 10:4 8 AM EDT us Elvin Yuan MD HISTORICAL/NON ORDERABLE LABS Fi nal Result Performing Organization Address [facility] Co de Phone Number [facility] [address] * HEPATITIS B SURFACE ANTIGEN* (03/05/2022 10:48 AM EDT) Hepatitis B Surface Antigen Negative Negative [facility] Hepatitis B Surface Antibody REACTIVE Nonreactive [facility] Comment:REACTIVE: > 11.99 mI U/mL HIV AB/AG Nonreactive Nonreactive [facility] Comment: HIV-1 p24 Ag and/or [...] detection of this assay. ?? [employer] HIV Ag/Ab Combo assay result and supplemental assay results should be interpreted in conjunction with the patient's clinical presentation, history and other laboratory results. ??If the results are inconsistent with clinical evidence, additional testing is suggested to confirm the result. Hepatitis B Core Antibody Reactive Nonreactive [facility] Comment:Presumptive evidence of anti-HBc. 03/05/2022 10:4 8 AM EDT us Elvin Name HISTORICAL/NON ORDERABLE LABS Fi nal Result [facility] [address] from Last 3 Months or Most Recently Relevant to Health [place] [phone] [facility] Care Teams Nurse Sexual Assault Relationship Specialty Start Date End Date Name, MD Elvin [address] [place] [address] PCP - General Family Medicine 02/21/16
--- OUTSIDE RECORDS SUMMARY | 2025-03-12 13:35 | XMS_ITS | Encounter Summary ---
Author Organization [employer] Address [address] [facility] 7t [place] [address] Care Team Providers Care Outreach Nurse Name Role Phone Name, Elvin VARELA Primary Care Provider [phone] Reason for Visit * Reason Comments Med Refill Encounter Details Date Type Department Care Team (Late st Contact Info) Description 11/23/2023 Refill [facility] [address] [place], [place] [phone] Name, MD Elvin [address] [place] [address] Essential hypertension Social History Tobacco Use Types [...] hypertension documented in this encounter Care Teams Outreach Nurse Relationship Specialty Start Date End Date Name, MD Elvin [address] [place] [address] PCP - General Family Medicine 02/21/16 documented as of this encounter
--- OUTSIDE RECORDS SUMMARY | 2025-03-12 13:35 | XMS_ITS | Encounter Summary ---
Author Organization [employer] Address [address] [facility] 7t [place] [address] Care Team Providers Care Scrub Nurse Name Role Phone Name, Elvin VARELA Primary Care Provider [phone] Reason for Visit * Reason Onset Date Comments Med Refill 04/02/2024 Encounter Details Date Type Department Care Team ([facility] st Contact Info) Description 04/02/[address] [facility] [address] [place] [address] Name, MD Elvin [address] [place] [address] Med Refill Social History Tobacco Use Types [...] capsule To be sent to: [facility]/pharmacy #[id number] [facility] [phone] [facility] documented in this encounter Plan of Treatment Not on file documented as of this encounter Visit Diagnoses Not on filedocumented in this encounter Additional Health Concerns Assessment Noted Time PHQ-9 Depression Total Score: 2 01/15/20 24 10:52 AM EST documented as of this encounter Care Teams Scrub Nurse Relationship Specialty Start Date End Date Name, MD Elvin [address] [place] [address] PCP - General Family Medicine 02/21/16 documented as of this encounter
--- OUTSIDE RECORDS SUMMARY | 2025-03-12 13:35 | XMS_ITS | Encounter Summary ---
Author Organization [employer] Address [address] [facility] 7t [place] [address] Care Team Providers Care Sandwich Artist Name Role Phone Name, Elvin VARELA Primary Care Provider [phone] Reason for Visit * Reason Comments Med Refill Encounter Details Date Type Department Care Team (Late st Contact Info) Description 09/08/2023 Refill [facility] [address] [place], [place] [phone] [facility] [address] [place], [place] [phone] Social History Tobacco Use Types Packs/Day Years [...] on filedocumented in this encounter Care Teams Sandwich Artist Relationship Specialty Start Date End Date Name, MD Elvin [address] [place] [address] PCP - General Family Medicine 02/21/16 documented as of this encounter
== END 2025-03-12 13:47 | disposition home or self-care (01) ==
LOC: HO.HGI 13:01
PROVIDERS: PCP Internal Medicine Geriatric Medicine; Visit Provider Nurse Practitioner
DX: K21.9 Gastro-esophageal reflux disease without esophagitis (principal); K58.9 Irritable bowel syndrome, unspecified
CPT/HCPCS: 99213

== ENCOUNTER → 2025-03-12 13:01 | Outpatient (BNVA) | payer OTHER, MEDICARE, MEDICAID, SELFPAY | PROVIDERS: PCP Internal Medicine Geriatric Medicine; Visit Provider Nurse Practitioner ==

== ENCOUNTER 2025-06-18 12:26 | Outpatient (AMB) | payer MEDICARE, MEDICAID, SELFPAY ==
[2025-06-18 12:28] VITALS: BP 130/61; PULSE 62; BMI 31.5
--- NOTE | 2025-06-18 12:28 | A.OFFVIS_ITS ---
Vital Signs 06/18/25 12:28 Height 5 ft 2 in Weight 172 lb BMI 31.5 BP 130/61 Blood Pressure Location Lt brachial Position Sitting Pulse 62 Intake Visit Reasons: Gastroesophageal reflux disease (GERD) Intake Note: Abrahan returns to in office follow up of GERD. CC: Patient c/o pain everytime he eats he gets abdominal pain. He also c/o acid reflux and heartburn. Patient states that he has not taken the dyciclomine yet. Tire Technician Required: No Accompanied by: Self / Same As Patient Allergies latex Allergy (Mild, Verified 06/18/25 12:35) Rash Influenza Virus Vaccines Allergy (Unknown, Verified 06/18/25 12:35) RASH HPI HPI Gastroesophageal reflux disease (GERD): Details: Assessment & Plan (1) GERD (gastroesophageal reflux disease): Code(s): K21.9 - Gastro-esophageal reflux disease without esophagitis Category: Medical (2) Bile acid esophageal reflux: Code(s): K21.9 - Gastro-esophageal reflux disease without esophagitis Category: Medical (3) IBS (irritable bowel syndrome): Code(s): K58.9 - Irritable bowel syndrome, unspecified Category: Medical Plan LATVIAN #declines He has a new concern of borborygmus w/o any CIC or diarrhea. At times he has cramping. No alarm sx this is mostly annoying for him. Trial of bently 10mg qid prn. He is doing well on his pantoprazole 40mg qd. ROV 3 mos to danny brewster. Medications: New dicyclomine 10 mg PO QID PRN 120 caps 3RF abdominal pain K21.9 - Gastro- esophageal reflux disease without esophagitis, K58.9 - Irritable bowel syndrome, unspecified Refilled pantoprazole 40 mg PO DAILY 90 tabs 1RF K21.9 - Gastro-esophageal reflux disease without esophagitis pantoprazole 40 mg PO DAILY 90 tabs 1RF K21.9 - Gastro-esophageal reflux disease without esophagitis TODAY'S VISIT Polish #declines He has not had to try the bentyl, and his pantoprazole is continuing to control his GERD. ROV 6 mos. [facility] Medical History (Updated 06/18/25 @ 12:37 by EARL Perry) Constipation HTN (hypertension) Sleep apnea Hx of gastroesophageal reflux (GERD) History of high cholesterol Surgical History Hx of excision of mass History of testicular surgery Hx of colonoscopy History of esophagogastroduodenoscopy (EGD) Family History Father Colon cancer Mother Alzheimer disease Brother Colon cancer, Onset Age: 60 Social History Alcohol intake: never Patient Tobacco Use Status: Never used Tobacco Review of Systems Const Denies fatigue, Denies fever(s), Denies night sweats, Denies poor appetite and Denies weight loss Eyes Reports requires corrective lenses ENT Reports Normal hearing present, Denies dental pain, Denies dysphagia, Denies hearing loss, Denies mouth pain, Denies odynophagia, Denies throat swelling, Denies tongue swelling and Reports other (Dentition adequate) GI Details: Denies abdominal pain, Denies melena, Denies bloating, Denies hematochezia, Denies constipation, Denies GI cramping, Denies dysphagia, Denies excessive flatus, Denies early satiety, Denies heartburn, Denies diarrhea, Denies nausea, Denies odynophagia, Denies vomiting and Denies hematemesis Skin/Breast Denies pruritus, Denies lesions, Denies rash and Denies jaundice Neuro Reports Normal hearing present and Denies Abnormal speech present Endo Denies fatigue Aller/Immun Denies throat swelling and Denies tongue swelling Physical Exam Const General: cooperative, no acute distress, well developed and well groomed Nutritional Appearance: well nourished, obese and overweight Orientation/consciousness: oriented to person, oriented to place and oriented to time Limitations: No language barrier, ambulation with cane, ambulation with walker and wheelchair HEENT Head: Yes normocephalic and Yes atraumatic Eyes General: appearance normal, both eyes and all related structures Pupils: Equal, round and reactive pupils present Neck Neck: Yes normal visual inspection and Yes no lymphadenopathy Thyroid: Thyroid normal Resp Effort & Inspection: normal respiratory effort and able to speak in complete sentences Auscultation: clear to auscultation bilaterally Cardio Rate: regular rate Rhythm: regular rhythm Heart sounds: Normal, physiologic split S2 sound present Peripheral pulses: radial pulses present and posterior tibial pulses present GI Inspection: No distended and No Abdominal panniculus present Palpation (GI): Soft to palpation, nontender, no guarding, not rigid, No hepatosplenomegaly present and Hepatosplenomegaly present Percussion: Yes normal to percussion Auscultation: normal bowel sounds Rectal Exam - Male: Yes deferred Skin General skin exam: no rashes or lesions noted, turgor normal, skin not dry, no jaundice, No spider nevi and no striae Rashes: no rashes Nails: normal Neuro General: oriented to person, oriented to place and oriented to time Cranial nerves: Yes Equal, round and reactive pupils present and Yes Normal hearing present Speech: No Abnormal speech present Extrem General: Yes normal to inspection, No clubbing, No cyanosis and No edema Psych Thought process: Normal thought process present and not confabulating Thought content: Normal thought content present Insight: Good insight present (Psych) Judgement: Good judgement present (Psych) Assessment & Plan Assessment & Plan (1) GERD (gastroesophageal reflux disease): Code(s): K21.9 - Gastro-esophageal reflux disease without esophagitis Category: Medical (2) IBS (irritable bowel syndrome): Code(s): K58.9 - Irritable bowel syndrome, unspecified Category: Medical Plan Polish #declines He has not had to try the bentyl, and his pantoprazole is continuing to control his GERD. ROV 6 mos. Medications: Refilled pantoprazole 40 mg PO DAILY 90 tabs 1RF K21.9 - Gastro-esophageal reflux disease without esophagitis Coding Level of Care Code Est Pt Level 3 (56906) Diagnoses GERD (gastroesophageal reflux disease) K21.9 IBS (irritable bowel syndrome) K58.9
--- OUTSIDE RECORDS SUMMARY | 2025-06-18 12:28 | XMS_ITS | Clinical Summary ---
Author Organization [facility] ity Address [address] [place] [address] Care Team Providers Care Nanny/Household Manager Name Role Phone Name, Elvin VARELA Primary Care Provider [phone] Surgical History Surgery Date Site/Laterality Comments OTHER SURGICAL HISTORY PROCEDURE: ---- OTHER ----; COMMENT: testicar surgery after trauma ESOPHAGOGASTRODUODENOSCOPY 2012 PROCEDURE: OR ESOPHAGOGASTRODUODENOSCOPY TRANSORAL DIAGNOSTIC; COMMENT: neg COLONOSCOPY 01/17/12 [...] Panel) 10/28/2022 Colorectal Cancer Screening: Colonoscopy 10/28/2022 HIV Screening 10/28/2022 Hepatitis C Screening 10/28/2022 Social Influencers of Health Screening 10/28/2022 COVID-19 Vaccine (1 - 2023-2 5 season) 2024 Depression Screening 11/25/2024 Influenza Vaccine (#1) 2025 HIB Vaccines Aged Out No longer [...] age to complete this topic Care Teams Nanny/Household Manager Relationship Specialty Start Date End Date Name, MD Elvin [address] [place], [place] PCP - General Internal Medicine 04/27/15
--- OUTSIDE RECORDS SUMMARY | 2025-06-18 12:28 | XMS_ITS | Encounter Summary ---
Author Organization [facility] Address [address] [place] [address] 7 [place] [address] Care Team Providers Care Director Of Hotel Operations Name Role Phone Name, Elvin VARELA Primary Care Provider [phone] Encounter Details Date Type Department Care Team (Late st Contact Info) Description 03/18/2023 Orders Only [facility] [address] [place] [address] Stacia Leon LPN Social History Tobacco Use [...] Care Team (Late st Contact Info) Description 08/02/2025 4:00 PM EDT Office Visit [facility] [address] [place] [address] NameElivn MD [address] [place] [address] documented as of this encounter Visit Diagnoses Not on filedocumented in this encounter Care Teams Director Of Hotel Operations Relationship Specialty Start Date End Date Elvin Yuan MD [address] [place] [address] PCP - General Family Medicine 02/21/16 documented as of this encounter
== END 2025-06-18 12:39 | disposition home or self-care (01) ==
LOC: HO.HGI 12:27
PROVIDERS: PCP Internal Medicine Geriatric Medicine; Visit Provider Nurse Practitioner
DX: K21.9 Gastro-esophageal reflux disease without esophagitis (principal); K58.9 Irritable bowel syndrome, unspecified
CPT/HCPCS: 99213

== ENCOUNTER → 2025-06-18 12:26 | Outpatient (BNVA) | payer OTHER, MEDICARE, MEDICAID, SELFPAY | PROVIDERS: PCP Internal Medicine Geriatric Medicine; Visit Provider Nurse Practitioner | DX: K21.9 Gastro-esophageal reflux disease without esophagitis (principal); K58.9 Irritable bowel syndrome, unspecified | CPT/HCPCS: 99212 ==

== ENCOUNTER 2025-07-14 09:27 | Emergency (ER) | payer MEDICARE, MEDICAID, SELFPAY ==
[2025-07-14 09:57] VITALS: BP 150/67; PULSE 54; RESP 16; TEMP 35.8; O2SAT 97; BMI 30.3
--- NOTE | 2025-07-14 09:59 | ED.GENADULT ---
HPI - General Adult General Stated complaint: itchy rash Time Seen by Provider: 07/14/25 09:59 Source: patient, RN notes reviewed and old records reviewed Mode of arrival: ambulatory Limitations: no limitations History of Present Illness ED Provider: Calvin VASQUEZ narrative: Patient is a 65-year-old male presenting in the emergency department with complaint of pruritic rash to his abdomen and bilateral upper legs for the past week. States symptoms began [place] was [place] the beach. Denies any fevers, chills, body aches. Has not taken any [id number] medications for his symptoms. Denies any shortness of breath or difficulty breathing. Denies any rash to palms/soles. MD complaint: rash Onset (ago): week(s) Related Data Home Medications ?Medication ?Instructions ?Recorded ?Confirmed cholecalciferol (vitamin D3) 25 25 mcg PO DAILY 07/17/21 04/30/24 mcg (1,000 unit) tablet (Vitamin D3) tadalafil 20 mg tablet (Cialis) 20 mg PO DAILY 10/24/22 04/30/24 amlodipine 10 mg tablet 10 mg PO DAILY 05/14/24 capsaicin 0.075 % topical cream appl topical TID 03/12/25 (Arthritis Pain Relief (capsaicin)) ketoconazole 2 % topical cream appl topical DAILY 03/12/25 atorvastatin 20 mg tablet 20 mg PO DAILY 06/18/25 Previous Rx's ?Medication ?Instructions ?Recorded cyclobenzaprine 10 mg tablet 10 mg PO TID PRN muscle spasm #20 08/25/24 tabs ibuprofen 600 mg tablet 600 mg PO Q6H PRN pain #20 tabs 08/25/24 ketorolac 10 mg tablet 10 mg PO Q6H PRN pain #20 tabs 01/29/25 dicyclomine 10 mg capsule 10 mg PO QID PRN for abdominal 03/24/25 pain #360 caps pantoprazole 40 mg tablet,delayed 40 mg PO DAILY #90 tabs 06/18/25 release cetirizine 10 mg tablet 10 mg PO DAILY #14 tabs 07/14/25 prednisone 10 mg tablet See Rx Instructions .Route 07/14/25 .COMPLEX #15 tabs Allergies Allergy/AdvReac Type Severity Reaction Status Date / Time latex Allergy Mild Rash Verified 07/14/25 09:59 Influenza Virus Vaccines Allergy Unknown RASH Verified 07/14/25 09:59 Review of Systems Review of Systems: as per hpi Yes all other systems are reviewed and are negative Constitutional: Constitutional: Reports as per HPI [facility] Past Medical History Medical History Constipation HTN (hypertension) Sleep apnea Hx of gastroesophageal reflux (GERD) History of high cholesterol Surgical History Hx of excision of mass History of testicular surgery Hx of colonoscopy History of esophagogastroduodenoscopy (EGD) Family History Family History Father Colon cancer Mother Alzheimer disease Brother Colon cancer, Onset Age: 60 Social History Social History Alcohol intake: never Patient Tobacco Use Status: Never used Tobacco Physical Exam ED Vital Signs: Vital signs have been reviewed and appear to be correct. Blood pressure normal. Heart rate normal. Respiratory rate normal. Temperature normal. Oxygen saturation normal. Const General: cooperative, healthy appearing and no acute distress Orientation/consciousness: oriented to person, oriented to place, oriented to time and patient oriented x3 Limitations: no limitations HENMT Head: Yes normocephalic and Yes atraumatic Ears: external ears normal General nose exam: Normal external nose present Face and sinus: Yes face symmetric Mouth: Normal oral and palatal mucosa present, lip normal, tongue normal, oropharynx normal and moist mucous membranes Throat: Yes uvula midline and No uvular edema Eyes Pupils: Equal, round and reactive pupils present Neck Neck: Yes normal visual inspection and Yes supple Resp Effort & Inspection: normal respiratory effort and able to speak in complete sentences Auscultation: clear to auscultation bilaterally Cardio Rate: regular rate Rhythm: regular rhythm Heart sounds: S1 normal heart sound present and S2 normal heart sound present GI Palpation (GI): Soft to palpation and nontender Auscultation: normoactive bowel sounds General: Yes no CVA tenderness Back/Spine/Pelvis Back: no CVA tenderness Skin Other: Fine maculopapular rash to abdomen and bilateral upper legs General skin exam: elasticity normal and turgor normal Neuro General: oriented to person, oriented to place, oriented to time, patient oriented x3, moves all extremities, no focal motor deficits and CN's II-XI intact bilaterally Cranial nerves: Yes Equal, round and reactive pupils present Cognition (Neuro): normal cognition Extrem General: Yes full ROM, Yes no pedal edema and Yes no calf tenderness Psych Mental Status: mental status grossly normal Affect: normal affect Thought process: Normal thought process present Medical Decision Making Medical Decision Making [facility] Narrative: Patient is a 65-year-old male presenting in the emergency department with complaint of pruritic rash to his abdomen and bilateral upper legs for the past week. On exam patient is awake, A+Ox3, VS WNL, afebrile, normal neurological exam without focal deficits, physical exam findings as above. Given reported symptoms and physical exam findings, initial differential includes but is not limited to contact dermatitis, viral illness, atopic dermatitis. Do not suspect TEN/SJS, DRESS, TTP/DIC, necrotizing fasciitis, meningococcemia, SSSS, TSS, anaphylaxis. Lungs CTA throughout. Rash very faintly erythematous. Will treat with tapering prednisone and cetirizine. Follow up with PCP as needed. Return precautions discussed. Patient verbalized understanding of and agreement with plan. Differential Diagnosis Differential Diagnoses: The differential diagnosis associated with the presentation includes as per [facility] Admission/Observation Consideration of admission/observation: Escalation of care including admission/observation considered Patient would have been admitted to the hospital had their clinical presentation warranted hospital admission. External Record Review External record reviewed: Inpatient record, Office record and Outpatient record Prescription Management I considered prescription management with: Other Discharge Plan Discharge Clinical Impression: Rash Patient Disposition: Home, Self-Care Instructions: Contact Dermatitis (DC), Acute Rash (ED) Additional Instructions: You were evaluated in the emergency department today for a rash. Your evaluation did not reveal evidence of conditions requiring emergent medical treatment. You are being prescribed a tapering dose of a steroid called prednisone to decrease inflammation. We are also prescribing an antihistamine medication called cetirizine. You can apply a thick unscented lotion to the affected areas such as Eucerine or Vanicream several times daily. Follow up with your primary care provider this week. If your symptoms do not improve, follow up with a a p manager. Return to the emergency department if you develop difficulty breathing or shortness of breath, swelling to lips, tongue, fever, rash inside your mouth or to your palms/soles or any other concerning symptoms. Prescriptions: New prednisone 10 mg tablet See Rx Instructions .ROUTE .COMPLEX Qty: 15 0RF Rx Instructions: 50mg (5 tabs) x1 day, then 40 mg (4 tabs) x1 day, then 30 mg (3 tabs) x1 day, then 20 mg (2 tabs) times 1 day, then 10 mg (1 tab) x1 day cetirizine 10 mg tablet 10 mg PO DAILY Qty: 14 0RF No Action dicyclomine 10 mg capsule 10 mg PO QID PRN (Reason: for abdominal pain) Qty: 360 1RF ketorolac 10 mg tablet 10 mg PO Q6H PRN (Reason: pain) Qty: 20 0RF Rx Instructions: maximum total duration of 5 days from all oral, intranasal, or parenteral formulations. The patient had an intramuscular injection of Toradol in the emergency department. ibuprofen 600 mg tablet 600 mg PO Q6H PRN (Reason: pain) Qty: 20 0RF cyclobenzaprine 10 mg tablet 10 mg PO TID PRN (Reason: muscle spasm) Qty: 20 0RF cholecalciferol (vitamin D3) [Vitamin D3] 25 mcg (1,000 unit) tablet 25 mcg PO DAILY tadalafil [Cialis] 20 mg tablet 20 mg PO DAILY capsaicin [Arthritis Pain Relief(capsaic)] 0.075 % cream topical TID ketoconazole 2 % cream topical DAILY atorvastatin 20 mg tablet 20 mg PO DAILY pantoprazole 40 mg tablet,delayed release (DR/EC) 40 mg PO DAILY Qty: 90 1RF amlodipine 10 mg tablet 10 mg PO DAILY Print Language: Persian
[2025-07-14 10:10] VITALS: BP 150/67; PULSE 54; RESP 16; TEMP 35.8; O2SAT 97
--- OUTSIDE RECORDS SUMMARY | 2025-07-14 11:05 | XMS_ITS | Clinical Summary ---
Author Organization [facility] ity Address [address] [place] [address] Care Team Providers Care Desktop Support Associate Name Role Phone Name, Elvin VARELA Primary Care Provider [phone] Surgical History Surgery Date Site/Laterality Comments OTHER SURGICAL HISTORY PROCEDURE: ---- OTHER ----; COMMENT: testicar surgery after trauma ESOPHAGOGASTRODUODENOSCOPY 2012 PROCEDURE: ID ESOPHAGOGASTRODUODENOSCOPY TRANSORAL DIAGNOSTIC; COMMENT: neg COLONOSCOPY 01/17/12 [...] age to complete this topic Care Teams Desktop Support Associate Relationship Specialty Start Date End Date Name, MD Elvin [address] [place], [place] PCP - General Internal Medicine 04/27/15
--- OUTSIDE RECORDS SUMMARY | 2025-07-14 11:05 | XMS_ITS | Encounter Summary ---
Author Organization [employer] Address [address] [place] [address] [address] [place] [address] Care Team Providers Care Newspaper Correspondent Name Role Phone Name, Elvin VARELA Primary Care Provider [phone] Encounter Details Date Type Department Care Team (Late st Contact Info) Description 03/18/2023 Orders Only [facility] [address] [place] [address] Stacia Leon LPN Social History Tobacco Use [...] Description 08/02/2025 4:00 PM EDT Office Visit [facility] [address] [place] [address] NameElvin MD [address] [place] [address] documented as of this encounter Visit Diagnoses Not on filedocumented in this encounter Care Teams Newspaper Correspondent Relationship Specialty Start Date End Date Elvin Yuan MD [address] [place] [address] PCP - General Family Medicine 02/21/16 documented as of this encounter
== END 2025-07-14 10:10 | disposition home or self-care (01) ==
PROVIDERS: Emergency Provider Emergency Medicine; PCP Internal Medicine Geriatric Medicine
DX: L29.89 Other pruritus (principal); Z79.899 Other long term (current) drug therapy
CPT/HCPCS: 99282; 99283

== ENCOUNTER 2025-09-03 14:11 | Outpatient (REF) | payer MEDICARE, MEDICAID, SELFPAY ==
[2025-09-06 11:33] LABS: TS Negative Control Passed; TS Panel A 1; TS Panel B 1; TS Positive Control Passed; TSpotTB Negative (Negative)
== END 2025-09-03 14:12 | disposition home or self-care (01) ==
LOC: HO.HHCL 14:11
PROVIDERS: PCP Internal Medicine Geriatric Medicine; Visit Provider Internal Medicine Geriatric Medicine
DX: Z11.1 Encounter for screening for respiratory tuberculosis (principal)
CPT/HCPCS: 36415; 86481